=== PATIENT | male | born 1985 | race Caucasian/White ===

== ENCOUNTER 2021-07-31 17:03 | Inpatient (IN) | payer SELFPAY ==
[~2021-07-31] VITALS: Ht 177.8 cm; Wt 84.3 kg
--- NOTE | 2021-07-31 17:26 | PHYS DOC ---
Past Medical History Past Medical History: No Pertinent History Past Surgical History: No Surgical History General Adult EDM: Chief Complaint: SHORTNESS OF BREATH HPI: HPI: Patient is a 35 year old male who presents with who presents with shortness of breath in the setting of known Covid. Tested positive on 07/19 while on vacation in [place]. Has been having nausea, vomiting, muscle aches, fever/chills. States that he has been having constant chest pressure that is making it hard for him to take a deep breath. Review of Systems: Review of Systems: Constitutional: Denies fever or chills. [] Eyes: Denies change in visual acuity. [] HENT: Denies nasal congestion or sore throat. [] Respiratory: Denies cough or shortness of breath. [] Cardiovascular: Denies chest pain or edema. [] GI: Denies abdominal pain, nausea, vomiting, bloody stools or diarrhea. [] : Denies dysuria. [] Musculoskeletal: Denies back pain or joint pain. [] Integument: Denies rash. [] Neurologic: Denies headache, focal weakness or sensory changes. [] Endocrine: Denies polyuria or polydipsia. [] Lymphatic: Denies swollen glands. [] Psychiatric: Denies depression or anxiety. [] Heart Score: C/O Chest Pain: Yes HEART Score for Chest Pain: HEART Score for Chest Pain Response (Comments) Value History Slighlty/Non-Suspicious 0 Age < 45 0 Risk Factors No Risk Factors 0 Total 0 Risk Factors: Risk Factors: None Risk Scores: Score 0 - 3: 2.5% MACE over next 6 weeks - Discharge Home Score 4 - 6: 20.3% MACE over next 6 weeks - Admit for Clinical Observation Score 7 - 10: 72.7% MACE over next 6 weeks - Early Invasive Strategies Physical Exam: PE: Constitutional: Well developed, well nourished, no acute distress, non-toxic appearance. [] HENT: Normocephalic, atraumatic, bilateral external ears normal, oropharynx moist, no oral exudates, nose normal. [] Eyes: PERRLA, EOMI, conjunctiva normal, no discharge. [] Neck: Normal range of motion, no tenderness, supple, no stridor. [] Cardiovascular tachycardic, regular rhythm, no murmur [] Lungs & Thorax: Visibly dyspneic, crackles bilaterally. Hypoxic to 74% on room air. Corrected to 90% with 6 L/min nasal cannula. Abdomen: Bowel sounds normal, soft, no tenderness, no masses, no pulsatile masses. [] Skin: Warm, dry, no erythema, no rash. [] Back: No tenderness, no CVA tenderness. [] Extremities: No tenderness, no cyanosis, no clubbing, ROM intact, no edema. [] Neurologic: Alert and oriented X 3, normal motor function, normal sensory function, no focal deficits noted. [] Psychologic: Affect normal, judgement normal, mood normal. [] Current Patient Data: Vital Signs: Vital Signs Date Time Temp Pulse Resp B/P (MAP) Pulse Ox O2 Delivery O2 Flow Rate FiO2 07/31/21 17:11 100.6 104 136/76 (96) 75 Room Air 100.6 EKG: EKG: Sinus rhythm. Rate 104. Normal axis. Normal intervals. T wave inversion in lead III. No acute ST segment depression or elevation. [] Radiology/Procedures: Radiology/Procedures: [] Impression: [facility] [address] [place] [address] IMAGING REPORT Signed PATIENT: HERI JARAMILLO ACCOUNT: [id number] : 1985 LOCATION: ER AGE: 35 SEX: M EXAM STATUS: PRE ER ORD. PHYSICIAN: RUY PERES MD REASON: covid +, SOB PROCEDURE: CHEST AP ONLY AP chest x-ray HISTORY: Positive Covid infection. Shortness of breath. FINDINGS: Heart size normal. Mediastinal silhouette is normal. No pneumothorax. No pleural effusions. Heterogeneous bilateral pulmonary interstitial and alveolar infiltrates with asymmetric denser opacity at the left lung base. Bones are unremarkable IMPRESSION: Bilateral pulmonary infiltrates given history of positive Covid infection most likely changes of acute viral pneumonia. Electronically signed by: Sridevi Hoffman MD (07/31/2021 5:39 PM) [facility] DICTATED and SIGNED BY: SRIDEVI HOFFMAN MD DATE: 07/31/21 [id number] 0 Course & Med Decision Making: Course & Med Decision Making Pertinent Labs and Imaging studies reviewed. (See chart for details) Patient a 35-year-old male who presents with dyspnea in the setting of Covid. Hypoxic to 74% on room air. Corrected to 90% on 6 L/min nasal cannula Complains of chest pressure that is pleuritic in nature. Tachycardic as well. Chest x-ray consistent with Covid pneumonia. CTA ordered to exclude PE. We will give IV dexamethasone. Hold on antibiotics for now. Will require admission for hypoxia. Accepted for admission by Dr. Webb. Ping Disclaimer: Ping Disclaimer: This electronic medical record was generated, in whole or in part, using a voice recognition dictation system. Departure Departure Impression: Primary Impression: Pneumonia due to COVID-19 virus Additional Impression: Acute respiratory failure with hypoxia Disposition: ADMITTED INPATIENT Admitting Physician: BESSY Ontiveros) Condition: VON RUY PERES MD Jul 31, 2021 17:26
--- NOTE | 2021-07-31 17:28 | EKG ---
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
--- NOTE | 2021-07-31 17:42 | RAD ---
AP chest x-ray HISTORY: Positive Covid infection. Shortness of breath. FINDINGS: Heart size normal. Mediastinal silhouette is normal. No pneumothorax. No pleural effusions. Heterogeneous bilateral pulmonary interstitial and alveolar infiltrates with asymmetric denser opaci ty at the left lung base. Bones are unremarkable IMPRESSION: Bilateral pulmonary infiltrates given history of positive Covid infection most likely tino nges of acute viral pneumonia. Electronically signed by: Ze Hoffman MD (07/31/2021 5:39 PM) [facility]
[2021-07-31 17:52] LABS: BASO % 0 % (0-3); EOS % 0 % (0-3); HEMATOCRIT 39.4 % (39.0-53.0); HEMOGLOBIN 13.6 g/dL (13.0-17.5); LYMPH # 0.4 x10^3/uL (1.0-4.8); LYMPH % 6 % (24-48); MEAN CORPUSCULAR HEMOGLOBIN 31 pg (25-35); MEAN CORPUSCULAR HGB CONC 35 g/dL (31-37); MEAN CORPUSCULAR VOLUME 89 fL (79-100); MONO # 0.2 x10^3/uL (0.0-1.1); MONO % 2 % (0-9); NEUT # 6.9 x10^3/uL (1.8-7.7); NEUT % 92 % (31-73); PLATELET COUNT 271 x10^3/uL (140-400); RED BLOOD COUNT 4.42 x10^6/uL (4.30-5.70); RED CELL DISTRIBUTION WIDTH 13.2 % (11.5-14.5); WHITE BLOOD COUNT 7.5 x10^3/uL (4.0-11.0)
[2021-07-31 18:01] LABS: CALCIUM 7.9 mg/dL (8.5-10.1); GFR 84.1; POTASSIUM 3.8 mmol/L (3.5-5.1)
[2021-07-31 18:07] LABS: ALBUMIN 2.3 g/dL (3.4-5.0); ALBUMIN/GLOBULIN RATIO 0.5 (1.0-1.7); TOTAL BILIRUBIN 0.5 mg/dL (0.2-1.0); TOTAL PROTEIN 6.5 g/dL (6.4-8.2)
[2021-07-31] MEDS ORDERED: IOHEXOL 350 MG/ML 100 ML VIAL. IV ONE (18:45)
[2021-07-31] MEDS ORDERED: CONTRAST GIVEN. MC PRN (18:45)
[2021-07-31] MEDS ORDERED: CALCIUM CARBONATE 500 MG TAB.CHEW PO PRN (19:00)
[2021-07-31] MEDS ORDERED: ELECTROLYTE (NON-ICU) PROTOCOL. MC PRN (19:00)
[2021-07-31] MEDS ORDERED: ALBUTEROL SULFATE 8GM INHALER. INH PRN (19:00)
[2021-07-31] MEDS ORDERED: oxyCODONE IR 5 MG TABLET PO PRN (19:00)
[2021-07-31] MEDS ORDERED: PIP/TAZO PER PHARMACY MC PRN (19:00)
--- NOTE | 2021-07-31 19:28 | RAD ---
EXAM: CT chest with contrast - pulmonary embolus protocol CLINICAL HISTORY: r/o PE, severe hypoxia, covid COMPARISON: None. TECHNIQUE: CT of the chest following the administration of intravenous contrast during the pulmonary arterial phase. Axial, coronal and sagittal reformatted images were generated including MIP images. ---PQRS compliance statement - One or more of the following individualized dose reduction techniques were utilized for this study: 1. Automated exposure control 2. Adjustment of the mA and/or kV according to patient size 3. Use of iterative reconstruction technique--- FINDINGS: CHEST: Diagnostic quality: Suboptimal. Pulmonary emboli: No large central pulmonary emboli seen. The pulmonary artery branches are not adeq uately assessed. Right heart strain: None Pulmonary arteries: Normal in caliber. Diffuse bilateral parenchymal airspace opacities are seen. Heart is not enlarged. No pericardial effu priscilla. No pleural effusion. No pneumothorax. No axillary lymphadenopathy. No mediastinal or hilar lymp hadenopathy. Visualized thyroid is unremarkable. Visualized Upper abdomen: Unremarkable Bones: No aggressive osseous lesion is seen. IMPRESSION: 1. Diffuse bilateral parenchymal airspace opacities likely consolidative process such as pneumonia, such as from viral/covid pneumonia. 2. Suboptimal contrast bolus. Within these constraints, no large central pulmonary embolus. Distal e valuation is limited. Electronically signed by: Joe Quijano MD (07/31/2021 7:26 PM) DON
--- NOTE | 2021-07-31 19:46 | PDOC1 ---
History and Physical Date of Service: DOS: DATE: 07/31/21 TIME: 19:40 Chief Complaint: Problems: (1) Acute respiratory failure with hypoxia (2) Pneumonia due to COVID-19 virus Chief Complain: Shortness of breath History of Present Illness: HPI: Patient is a 35-year-old white male who presented to the emergency room today due to ongoing shortness of breath. Patient denies any sort of past medical history or daily medications. Reports that he was on vacation in [place] and had been having some nausea vomiting fever chills and cough. Was seen in emergency room there twice and was actually diagnosed on 07/19 with Covid. Says that he was not provided any medication outpatient on either of these visits. Says that ever since the diagnosis on the he has had ongoing GI upset nausea vomiting. Also reports that his shortness of breath notably worsened today. CT performed in emergency room negative for PE but more so consistent with a pneumonia. When I evaluated the patient as he was resting in bed on 6 L nasal cannula. Given Covid positive he was started on dexamethasone. He is apparently not a candidate at this time for remdesivir due to diagnosis being too long ago. May be retest Past Medical/Surgical History: PMH/PSH: Patient denies any sort of past medical history Allergies: Allergies: Coded Allergies: No Known Drug Allergies (Unverified , 07/31/21) Family History: Family History: Reviewed with patient he believes there is hypertension in his family Social History: Social History: Denies alcohol tobacco drug use Current Medications: Current Medications Current Medications Iohexol (Omnipaque 350 Mg/ml) 100 ml 1X ONCE IV Last administered on 07/31/21at 19:13; Start 07/31/21 at 18:45; Stop 07/31/21 at 18:46; Status DC Info (CONTRAST GIVEN -- Rx MONITORING) 1 each PRN DAILY PRN MC SEE COMMENTS; Start 07/31/21 at 18:45; Stop 08/02/21 at 18:44 Albuterol Sulfate (Ventolin Hfa) 2 puff PRN Q4HRS PRN INH SHORTNESS OF BREATH; Start 07/31/21 at 19:00 Dexamethasone Sodium Phosphate (Decadron) 6 mg DAILY IVP ; Start 07/31/21 at 19:30 Ondansetron HCl (Zofran) 4 mg PRN Q6HRS PRN IVP NAUSEA/VOMITING; Start 07/31/21 at 19:00 Calcium Carbonate/ Glycine (Tums) 500 mg PRN Q3HRS PRN PO UPSET STOMACH; Start 07/31/21 at 19:00 Zolpidem Tartrate (Ambien) 5 mg PRN QHS PRN PO INSOMNIA, MAY REPEAT IN 1HR; Start 07/31/21 at 19:00 Info (Non-Icu Electrolyte Protocol) 1 ea PRN DAILY PRN MC SEE COMMENTS; Start 07/31/21 at 19:00 Oxycodone HCl (Roxicodone) 5 mg PRN Q3HRS PRN PO BREAKTHROUGH PAIN; Start 07/31/21 at 19:00 Oxycodone/ Acetaminophen (Percocet 5/325) 1 tab PRN Q4HRS PRN PO MILD PAIN, 1ST CHOICE; Start 07/31/21 at 19:00 Oxycodone/ Acetaminophen (Percocet 5/325) 2 tab PRN Q4HRS PRN PO MODERATE PAIN, SEVERE PAIN; Start 07/31/21 at 19:00 Acetaminophen (Tylenol) 650 mg PRN Q6HRS PRN PO Headaches, Temp > 101.5F; Start 07/31/21 at 19:00 Senna/Docusate Sodium (Senna Plus) 1 tab BID PO ; Start 07/31/21 at 21:00 Enoxaparin Sodium (Lovenox 40mg Syringe) 40 mg Q24H SQ ; Start 07/31/21 at 20:00 Guaifenesin/ Codeine Phosphate (Robitussin Ac) 5 ml PRN Q6HRS PRN PO COUGH; Start 07/31/21 at 19:00 Multivitamins (Thera M Plus) 1 tab DAILY PO ; Start 08/01/21 at 09:00 Piperacillin Sod/ Tazobactam Sod (Zosyn Per Pharmacy) 1 each PRN DAILY PRN MC SEE COMMENTS; Start 07/31/21 at 19:00 Piperacillin Sod/ Tazobactam Sod 3.375 gm/Sodium Chloride 50 ml @ 100 mls/hr Q6HRS IV ; Start 07/31/21 at 19:30 ROS: Review of Systems Review of System Unless noted in HPI 14 point review of systems was negative Physical Exam: Vital Signs: Vital Signs Date Time Temp Pulse Resp B/P (MAP) Pulse Ox O2 Delivery O2 Flow Rate FiO2 07/31/21 19:09 112 30 147/72 (97) 92 6.0 07/31/21 18:08 Nasal Cannula 07/31/21 17:11 100.6 100.6 Physcial Exam: GEN: No apparent distress. Alert and oriented HEENT: Normal cephalic, atraumatic, external auditory canals are patent EYES: Extraocular muscles are intact, pupil are equally round and reactive to light and accommodation MUSCULOSKELETAL: Well developed , well nourished, good range of motion ENDOCRINE: No thyromegaly was palpated LYMPHATICS: No cervical chain or axillary nodes were noted HEMATOPOIETIC: No bruising NECK: Supple, no JVD, no thyromegaly was noted LUNGS: Coarse breath sounds throughout. On 6 L nasal cannula no apparent respiratory distress HEART: RRR, S1, S2 present. Peripheral pulses intact, no obvious murmurs noted ABDOMEN: Soft, nontender. Positive bowel sounds, no organomegaly, normal bowel sounds EXTREMITIES: Without clubbing, cyanosis, or edema. Pedal pulses intact. NEUROLOGIC: Normal speech and tone. A&O x 3, moves all extremities, no obvious focal deficits PSYCHIATRIC: Normal affect, normal mood. Stable SKIN: No ulcerations or rashes, good skin turgor, no jaundice VASCULAR: Good capillary refill, neurovascular bundle appears to be intact Labs: Labs: Laboratory Tests Test 07/31/21 17:45 White Blood Count 7.5 x10^3/uL (4.0-11.0) Red Blood Count 4.42 x10^6/uL (4.30-5.70) Hemoglobin 13.6 g/dL (13.0-17.5) Hematocrit 39.4 % (39.0-53.0) Mean Corpuscular Volume 89 fL (79-100) Mean Corpuscular Hemoglobin 31 pg (25-35) Mean Corpuscular Hemoglobin Concent 35 g/dL (31-37) Red Cell Distribution Width 13.2 % (11.5-14.5) Platelet Count 271 x10^3/uL (140-400) Neutrophils (%) (Auto) 92 % (31-73) Lymphocytes (%) (Auto) 6 % (24-48) Monocytes (%) (Auto) 2 % (0-9) Eosinophils (%) (Auto) 0 % (0-3) Basophils (%) (Auto) 0 % (0-3) Neutrophils # (Auto) 6.9 x10^3/uL (1.8-7.7) Lymphocytes # (Auto) 0.4 x10^3/uL (1.0-4.8) Monocytes # (Auto) 0.2 x10^3/uL (0.0-1.1) Eosinophils # (Auto) 0.0 x10^3/uL (0.0-0.7) Basophils # (Auto) 0.0 x10^3/uL (0.0-0.2) Sodium Level 134 mmol/L (136-145) Potassium Level 3.8 mmol/L (3.5-5.1) Chloride Level 96 mmol/L (98-107) Carbon Dioxide Level 26 mmol/L (21-32) Anion Gap 12 (6-14) Blood Urea Nitrogen 13 mg/dL (8-26) Creatinine 1.0 mg/dL (0.7-1.3) Estimated GFR (Cockcroft-Gault) 84.1 BUN/Creatinine Ratio 13 (6-20) Glucose Level 105 mg/dL (70-99) Calcium Level 7.9 mg/dL (8.5-10.1) Total Bilirubin 0.5 mg/dL (0.2-1.0) Aspartate Amino Transf (AST/SGOT) 75 U/L (15-37) Alanine Aminotransferase (ALT/SGPT) 119 U/L (16-63) Alkaline Phosphatase 111 U/L (46-116) Troponin I Quantitative < 0.017 ng/mL (0.000-0.055) OM-Ojl-L-Type Natriuretic Peptide 638 pg/mL (0-124) Total Protein 6.5 g/dL (6.4-8.2) Albumin 2.3 g/dL (3.4-5.0) Albumin/Globulin Ratio 0.5 (1.0-1.7) Laboratory Tests Test 07/31/21 17:45 White Blood Count 7.5 x10^3/uL (4.0-11.0) Red Blood Count 4.42 x10^6/uL (4.30-5.70) Hemoglobin 13.6 g/dL (13.0-17.5) Hematocrit 39.4 % (39.0-53.0) Mean Corpuscular Volume 89 fL (79-100) Mean Corpuscular Hemoglobin 31 pg (25-35) Mean Corpuscular Hemoglobin Concent 35 g/dL (31-37) Red Cell Distribution Width 13.2 % (11.5-14.5) Platelet Count 271 x10^3/uL (140-400) Neutrophils (%) (Auto) 92 % (31-73) Lymphocytes (%) (Auto) 6 % (24-48) Monocytes (%) (Auto) 2 % (0-9) Eosinophils (%) (Auto) 0 % (0-3) Basophils (%) (Auto) 0 % (0-3) Neutrophils # (Auto) 6.9 x10^3/uL (1.8-7.7) Lymphocytes # (Auto) 0.4 x10^3/uL (1.0-4.8) Monocytes # (Auto) 0.2 x10^3/uL (0.0-1.1) Eosinophils # (Auto) 0.0 x10^3/uL (0.0-0.7) Basophils # (Auto) 0.0 x10^3/uL (0.0-0.2) Sodium Level 134 mmol/L (136-145) Potassium Level 3.8 mmol/L (3.5-5.1) Chloride Level 96 mmol/L (98-107) Carbon Dioxide Level 26 mmol/L (21-32) Anion Gap 12 (6-14) Blood Urea Nitrogen 13 mg/dL (8-26) Creatinine 1.0 mg/dL (0.7-1.3) Estimated GFR (Cockcroft-Gault) 84.1 BUN/Creatinine Ratio 13 (6-20) Glucose Level 105 mg/dL (70-99) Calcium Level 7.9 mg/dL (8.5-10.1) Total Bilirubin 0.5 mg/dL (0.2-1.0) Aspartate Amino Transf (AST/SGOT) 75 U/L (15-37) Alanine Aminotransferase (ALT/SGPT) 119 U/L (16-63) Alkaline Phosphatase 111 U/L (46-116) Troponin I Quantitative < 0.017 ng/mL (0.000-0.055) DQ-Dgt-T-Type Natriuretic Peptide 638 pg/mL (0-124) Total Protein 6.5 g/dL (6.4-8.2) Albumin 2.3 g/dL (3.4-5.0) Albumin/Globulin Ratio 0.5 (1.0-1.7) Assessment/Plan Assessment/Plan Acute hypoxic respiratory failure secondary to COVID-19 pneumonia -Patient initially diagnosed with Covid on 07/19. Reports ongoing symptom -Presented here saturating in the 70s on room air. Corrected up to the 90s with 6 L nasal cannula -Admit for further treatment -Patient not a candidate for remdesivir at this time however will retest him here. -Continue dexamethasone 6 mg daily -Patient started on Zosyn in the event of a possible bacterial pneumonia -Breathing treatments ordered -DVT prophylaxis -No home meds to resume -Regular diet Justifications for Admission Other Justification YOSI RAHMAN MD Jul 31, 2021 19:46
[2021-07-31] MEDS: DEXAMETHASONE SOD PHOS 4 MG/ML VIAL IVP SCH (19:55)
[2021-07-31] MEDS: PIPERACILLIN/TAZOBACTAM 3.375 GM in IV NORMAL SALINE 50ML 50 ML IV SCH (19:55)
[2021-07-31] MEDS ORDERED: IPRATRPIUM/ALBUTEROL 0.5/2.5MG 3 ML NEBU. NEB SCH (20:00)
[2021-07-31] MEDS: oxyCODONE/APAP 5/325 1 TAB TABLET PO PRN (20:31)
[2021-07-31] MEDS: ZOLPIDEM 5 MG TABLET. PO PRN (20:32)
[2021-07-31] MEDS: ENOXAPARIN 40 MG/0.4 ML SYRINGE. SQ SCH (20:32)
[2021-07-31] MEDS: SENNOSIDES/DOCUSATE 8.6/50MG TABLET. PO SCH (21:00)
[2021-07-31 23:30] VITALS: BP 118/75
[2021-08-01 03:30] VITALS: BP 134/77
[2021-08-01] MEDS: PIPERACILLIN/TAZOBACTAM 3.375 GM in IV NORMAL SALINE 50ML 50 ML IV SCH ×4 (05:45→17:25)
[2021-08-01] MEDS: guaiFENesin/CODEINE 100mg/10mg 5 ML LIQUID PO PRN ×3 (05:45→19:50)
[2021-08-01 07:00] VITALS: BP 145/93
[2021-08-01] MEDS: SENNOSIDES/DOCUSATE 8.6/50MG TABLET. PO SCH ×2 (09:00→19:53)
[2021-08-01] MEDS: DEXAMETHASONE SOD PHOS 4 MG/ML VIAL IVP SCH (09:09)
[2021-08-01] MEDS: ACETAMINOPHEN 325 MG TABLET. PO PRN (09:09)
[2021-08-01] MEDS: MULTIVITAMIN with MINERAL TABLET. PO SCH (09:09)
[2021-08-01] MEDS: DOXYCYCLINE HYCLATE 100 MG in IV DEXTROSE 5% 100ML 100 ML IV SCH ×2 (10:49→19:49)
[2021-08-01] MEDS: ASPIRIN ENTERIC COATED 81 MG TABLET.DR. PO SCH (10:52)
[2021-08-01 11:00] VITALS: BP 127/78
[2021-08-01] MEDS ORDERED: REMDESIVIR LOAD in IV NORMAL SALINE 250ML TV IV ONE (11:00)
--- NOTE | 2021-08-01 13:16 | PDOC ---
[employer] PROGRESS NOTE Date of Service DOS: DATE: 08/01/21 TIME: 13:13 Chief Complaint Chief Complaint Covid-19 respiratory failure disease (he is unvaccinated) History of Present Illness History of Present Illness 08/01/2021 Patient seen and examined in the telemetry unit He is currently on 100% nonrebreather but satting 97% Discussed with RN Chart reviewed I ordered full Covid protocol including calling the pharmacy for remdesivir Vitals/I&O Vitals/I&O: Vital Signs Date Time Temp Pulse Resp B/P (MAP) Pulse Ox O2 Delivery O2 Flow Rate FiO2 08/01/21 11:00 98.1 86 22 127/78 (94) 91 NonRebreather Mask 15.0 98.1 I & O 07/31/21 07/31/21 08/01/21 15:00 23:00 07:00 Output Total 0 ml 500 ml Balance 0 ml -500 ml Physical Exam General: Alert, Oriented X3, moderate distress Heart: No murmurs Lungs: Crackles Abdomen: Normal bowel sounds Extremities: No cyanosis Skin: No rashes Labs Labs: Laboratory Tests Test 07/31/21 17:45 White Blood Count 7.5 x10^3/uL (4.0-11.0) Red Blood Count 4.42 x10^6/uL (4.30-5.70) Hemoglobin 13.6 g/dL (13.0-17.5) Hematocrit 39.4 % (39.0-53.0) Mean Corpuscular Volume 89 fL (79-100) Mean Corpuscular Hemoglobin 31 pg (25-35) Mean Corpuscular Hemoglobin Concent 35 g/dL (31-37) Red Cell Distribution Width 13.2 % (11.5-14.5) Platelet Count 271 x10^3/uL (140-400) Neutrophils (%) (Auto) 92 % (31-73) Lymphocytes (%) (Auto) 6 % (24-48) Monocytes (%) (Auto) 2 % (0-9) Eosinophils (%) (Auto) 0 % (0-3) Basophils (%) (Auto) 0 % (0-3) Neutrophils # (Auto) 6.9 x10^3/uL (1.8-7.7) Lymphocytes # (Auto) 0.4 x10^3/uL (1.0-4.8) Monocytes # (Auto) 0.2 x10^3/uL (0.0-1.1) Eosinophils # (Auto) 0.0 x10^3/uL (0.0-0.7) Basophils # (Auto) 0.0 x10^3/uL (0.0-0.2) Sodium Level 134 mmol/L (136-145) Potassium Level 3.8 mmol/L (3.5-5.1) Chloride Level 96 mmol/L (98-107) Carbon Dioxide Level 26 mmol/L (21-32) Anion Gap 12 (6-14) Blood Urea Nitrogen 13 mg/dL (8-26) Creatinine 1.0 mg/dL (0.7-1.3) Estimated GFR (Cockcroft-Gault) 84.1 BUN/Creatinine Ratio 13 (6-20) Glucose Level 105 mg/dL (70-99) Calcium Level 7.9 mg/dL (8.5-10.1) Total Bilirubin 0.5 mg/dL (0.2-1.0) Aspartate Amino Transf (AST/SGOT) 75 U/L (15-37) Alanine Aminotransferase (ALT/SGPT) 119 U/L (16-63) Alkaline Phosphatase 111 U/L (46-116) Troponin I Quantitative < 0.017 ng/mL (0.000-0.055) XE-Nxk-R-Type Natriuretic Peptide 638 pg/mL (0-124) Total Protein 6.5 g/dL (6.4-8.2) Albumin 2.3 g/dL (3.4-5.0) Albumin/Globulin Ratio 0.5 (1.0-1.7) Assessment and Plan Assessmemt and Plan Problems Medical Problems: (1) Acute respiratory failure with hypoxia Status: Acute (2) Pneumonia due to COVID-19 virus Status: Acute Covid-19 respiratory failure (he is unvaccinated) Plan Remdesivir Steroids Vitamins and minerals Broad-spectrum antibiotics Doxycycline Beta agonist Continue O2 per 100% nonrebreather hope to titrate that down if possible Robitussin with codeine cough syrup Lovenox for DVT prophylaxis Aspirin Prognosis guarded CC time 31 minutes Comment Review of Relevant I have reviewed the following items iam (where applicable) has been applied. Medications: Current Medications Medications (Trade) Dose Ordered Sig/Willy Route PRN Reason Start Time Stop Time Status Last Admin Dose Admin Iohexol (Omnipaque 350 Mg/ml) 100 ml 1X ONCE IV 07/31/21 18:45 07/31/21 18:46 DC 07/31/21 19:13 Dexamethasone Sodium Phosphate (Decadron) 6 mg DAILY IVP 07/31/21 19:30 08/01/21 09:09 Zolpidem Tartrate (Ambien) 5 mg PRN QHS PRN PO INSOMNIA, MAY REPEAT IN 1HR 07/31/21 19:00 07/31/21 20:32 Oxycodone/ Acetaminophen (Percocet 5/325) 1 tab PRN Q4HRS PRN PO MILD PAIN, 1ST CHOICE 07/31/21 19:00 07/31/21 20:31 Acetaminophen (Tylenol) 650 mg PRN Q6HRS PRN PO Headaches, Temp > 101.5F 07/31/21 19:00 08/01/21 09:09 Enoxaparin Sodium (Lovenox 40mg Syringe) 40 mg Q24H SQ 07/31/21 20:00 07/31/21 20:32 Guaifenesin/ Codeine Phosphate (Robitussin Ac) 5 ml PRN Q6HRS PRN PO COUGH 07/31/21 19:00 08/01/21 09:09 Multivitamins (Thera M Plus) 1 tab DAILY PO 08/01/21 09:00 08/01/21 09:09 Piperacillin Sod/ Tazobactam Sod 3.375 gm/Sodium Chloride 50 ml @ 100 mls/hr Q6HRS IV 07/31/21 19:30 08/01/21 12:04 Remdesivir 200 mg/ Sodium Chloride 210 ml @ 210 mls/hr 1X ONCE IV 08/01/21 11:00 08/01/21 11:59 DC 08/01/21 10:51 Guaifenesin (Mucinex) 600 mg BID PO 08/01/21 11:00 08/01/21 10:52 Doxycycline Hyclate 100 mg/ Dextrose 100 ml @ 50 mls/hr Q12HR IV 08/01/21 11:00 08/01/21 10:49 Aspirin (Ecotrin) 81 mg DAILYWBKFT PO 08/01/21 11:00 08/01/21 10:52 Justifications for Admission Other Justification DON CHAUHAN III DO Aug 01, 2021 13:16
[2021-08-01 15:00] VITALS: BP 127/70
--- NOTE | 2021-08-01 17:30 | PDOC ---
PULMONARY PROGRESS NOTES DATE: 08/01/21 TIME: 17:29 Vitals Vital Signs Date Time Temp Pulse Resp B/P (MAP) Pulse Ox O2 Delivery O2 Flow Rate FiO2 08/01/21 15:00 97.4 77 30 127/70 (89) 94 NonRebreather Mask 15.0 97.4 Lungs: Crackles Labs Laboratory Tests Test 07/31/21 17:45 White Blood Count 7.5 x10^3/uL (4.0-11.0) Red Blood Count 4.42 x10^6/uL (4.30-5.70) Hemoglobin 13.6 g/dL (13.0-17.5) Hematocrit 39.4 % (39.0-53.0) Mean Corpuscular Volume 89 fL (79-100) Mean Corpuscular Hemoglobin 31 pg (25-35) Mean Corpuscular Hemoglobin Concent 35 g/dL (31-37) Red Cell Distribution Width 13.2 % (11.5-14.5) Platelet Count 271 x10^3/uL (140-400) Neutrophils (%) (Auto) 92 % (31-73) Lymphocytes (%) (Auto) 6 % (24-48) Monocytes (%) (Auto) 2 % (0-9) Eosinophils (%) (Auto) 0 % (0-3) Basophils (%) (Auto) 0 % (0-3) Neutrophils # (Auto) 6.9 x10^3/uL (1.8-7.7) Lymphocytes # (Auto) 0.4 x10^3/uL (1.0-4.8) Monocytes # (Auto) 0.2 x10^3/uL (0.0-1.1) Eosinophils # (Auto) 0.0 x10^3/uL (0.0-0.7) Basophils # (Auto) 0.0 x10^3/uL (0.0-0.2) Sodium Level 134 mmol/L (136-145) Potassium Level 3.8 mmol/L (3.5-5.1) Chloride Level 96 mmol/L (98-107) Carbon Dioxide Level 26 mmol/L (21-32) Anion Gap 12 (6-14) Blood Urea Nitrogen 13 mg/dL (8-26) Creatinine 1.0 mg/dL (0.7-1.3) Estimated GFR (Cockcroft-Gault) 84.1 BUN/Creatinine Ratio 13 (6-20) Glucose Level 105 mg/dL (70-99) Calcium Level 7.9 mg/dL (8.5-10.1) Total Bilirubin 0.5 mg/dL (0.2-1.0) Aspartate Amino Transf (AST/SGOT) 75 U/L (15-37) Alanine Aminotransferase (ALT/SGPT) 119 U/L (16-63) Alkaline Phosphatase 111 U/L (46-116) Troponin I Quantitative < 0.017 ng/mL (0.000-0.055) NY-Dsf-X-Type Natriuretic Peptide 638 pg/mL (0-124) Total Protein 6.5 g/dL (6.4-8.2) Albumin 2.3 g/dL (3.4-5.0) Albumin/Globulin Ratio 0.5 (1.0-1.7) Laboratory Tests Test 07/31/21 17:45 White Blood Count 7.5 x10^3/uL (4.0-11.0) Red Blood Count 4.42 x10^6/uL (4.30-5.70) Hemoglobin 13.6 g/dL (13.0-17.5) Hematocrit 39.4 % (39.0-53.0) Mean Corpuscular Volume 89 fL (79-100) Mean Corpuscular Hemoglobin 31 pg (25-35) Mean Corpuscular Hemoglobin Concent 35 g/dL (31-37) Red Cell Distribution Width 13.2 % (11.5-14.5) Platelet Count 271 x10^3/uL (140-400) Neutrophils (%) (Auto) 92 % (31-73) Lymphocytes (%) (Auto) 6 % (24-48) Monocytes (%) (Auto) 2 % (0-9) Eosinophils (%) (Auto) 0 % (0-3) Basophils (%) (Auto) 0 % (0-3) Neutrophils # (Auto) 6.9 x10^3/uL (1.8-7.7) Lymphocytes # (Auto) 0.4 x10^3/uL (1.0-4.8) Monocytes # (Auto) 0.2 x10^3/uL (0.0-1.1) Eosinophils # (Auto) 0.0 x10^3/uL (0.0-0.7) Basophils # (Auto) 0.0 x10^3/uL (0.0-0.2) Sodium Level 134 mmol/L (136-145) Potassium Level 3.8 mmol/L (3.5-5.1) Chloride Level 96 mmol/L (98-107) Carbon Dioxide Level 26 mmol/L (21-32) Anion Gap 12 (6-14) Blood Urea Nitrogen 13 mg/dL (8-26) Creatinine 1.0 mg/dL (0.7-1.3) Estimated GFR (Cockcroft-Gault) 84.1 BUN/Creatinine Ratio 13 (6-20) Glucose Level 105 mg/dL (70-99) Calcium Level 7.9 mg/dL (8.5-10.1) Total Bilirubin 0.5 mg/dL (0.2-1.0) Aspartate Amino Transf (AST/SGOT) 75 U/L (15-37) Alanine Aminotransferase (ALT/SGPT) 119 U/L (16-63) Alkaline Phosphatase 111 U/L (46-116) Troponin I Quantitative < 0.017 ng/mL (0.000-0.055) II-Ycn-U-Type Natriuretic Peptide 638 pg/mL (0-124) Total Protein 6.5 g/dL (6.4-8.2) Albumin 2.3 g/dL (3.4-5.0) Albumin/Globulin Ratio 0.5 (1.0-1.7) Impression . COVID-19 Continue remdesivir, continue steroid Discontinue Zosyn, doubt concomitant bacterial pneumonia We are currently out of tocilizumab, not sure patient would have been a candidate. His LFTs are elevated We will monitor daily LFTs patient on remdesivir Discussed with pharmacy JORDEN PERDUE MD Aug 01, 2021 17:30
[2021-08-01] MEDS ORDERED: diphenhydrAMINE HCL 25 MG CAPSULE PO PRN (18:45)
[2021-08-01 19:00] VITALS: BP 140/81
[2021-08-01] MEDS: cefTRIAXone IV Push 1 GM VIAL. IVP SCH (19:49)
[2021-08-01] MEDS: ENOXAPARIN 40 MG/0.4 ML SYRINGE. SQ SCH (19:49)
[2021-08-01] MEDS: ZOLPIDEM 5 MG TABLET. PO PRN (19:51)
[2021-08-01] MEDS: LACTOBACILLUS RHAMNOSUS GG 1 CAPSULE. PO SCH (19:51)
[2021-08-01] MEDS: oxyCODONE/APAP 5/325 1 TAB TABLET PO PRN (19:51)
[2021-08-01 22:38] VITALS: BP 146/85
[2021-08-02 02:51] VITALS: BP 133/92
[2021-08-02 07:36] VITALS: BP 123/88
[2021-08-02] MEDS: MULTIVITAMIN with MINERAL TABLET. PO SCH (08:04)
[2021-08-02] MEDS: ASPIRIN ENTERIC COATED 81 MG TABLET.DR. PO SCH (08:04)
[2021-08-02] MEDS: DEXAMETHASONE SOD PHOS 4 MG/ML VIAL IVP SCH (08:04)
[2021-08-02] MEDS: SENNOSIDES/DOCUSATE 8.6/50MG TABLET. PO SCH ×2 (08:04→20:17)
[2021-08-02] MEDS: LACTOBACILLUS RHAMNOSUS GG 1 CAPSULE. PO SCH ×2 (08:04→20:17)
[2021-08-02] MEDS: DOXYCYCLINE HYCLATE 100 MG in IV DEXTROSE 5% 100ML 100 ML IV SCH ×2 (08:05→20:16)
--- NOTE | 2021-08-02 09:06 | PDOC ---
PULMONARY PROGRESS NOTES DATE: 08/02/21 TIME: 09:06 Subjective Patient feels worse this morning has some nausea, coughing up some mucus mixed in with blood Vitals Vital Signs Date Time Temp Pulse Resp B/P (MAP) Pulse Ox O2 Delivery O2 Flow Rate FiO2 08/02/21 07:36 97.8 76 16 123/88 (100) 99 NonRebreather Mask 15.0 97.8 ROS: No Chest Pain, No Increase Cough General: Alert Lungs: Crackles Cardiovascular: S1, S2 Abdomen: Soft Neuro Exam: Alert Extremities: No Edema Skin: Warm Labs Laboratory Tests Test 07/31/21 17:45 White Blood Count 7.5 x10^3/uL (4.0-11.0) Red Blood Count 4.42 x10^6/uL (4.30-5.70) Hemoglobin 13.6 g/dL (13.0-17.5) Hematocrit 39.4 % (39.0-53.0) Mean Corpuscular Volume 89 fL (79-100) Mean Corpuscular Hemoglobin 31 pg (25-35) Mean Corpuscular Hemoglobin Concent 35 g/dL (31-37) Red Cell Distribution Width 13.2 % (11.5-14.5) Platelet Count 271 x10^3/uL (140-400) Neutrophils (%) (Auto) 92 % (31-73) Lymphocytes (%) (Auto) 6 % (24-48) Monocytes (%) (Auto) 2 % (0-9) Eosinophils (%) (Auto) 0 % (0-3) Basophils (%) (Auto) 0 % (0-3) Neutrophils # (Auto) 6.9 x10^3/uL (1.8-7.7) Lymphocytes # (Auto) 0.4 x10^3/uL (1.0-4.8) Monocytes # (Auto) 0.2 x10^3/uL (0.0-1.1) Eosinophils # (Auto) 0.0 x10^3/uL (0.0-0.7) Basophils # (Auto) 0.0 x10^3/uL (0.0-0.2) Sodium Level 134 mmol/L (136-145) Potassium Level 3.8 mmol/L (3.5-5.1) Chloride Level 96 mmol/L (98-107) Carbon Dioxide Level 26 mmol/L (21-32) Anion Gap 12 (6-14) Blood Urea Nitrogen 13 mg/dL (8-26) Creatinine 1.0 mg/dL (0.7-1.3) Estimated GFR (Cockcroft-Gault) 84.1 BUN/Creatinine Ratio 13 (6-20) Glucose Level 105 mg/dL (70-99) Calcium Level 7.9 mg/dL (8.5-10.1) Total Bilirubin 0.5 mg/dL (0.2-1.0) Aspartate Amino Transf (AST/SGOT) 75 U/L (15-37) Alanine Aminotransferase (ALT/SGPT) 119 U/L (16-63) Alkaline Phosphatase 111 U/L (46-116) Troponin I Quantitative < 0.017 ng/mL (0.000-0.055) KR-Uzl-S-Type Natriuretic Peptide 638 pg/mL (0-124) Total Protein 6.5 g/dL (6.4-8.2) Albumin 2.3 g/dL (3.4-5.0) Albumin/Globulin Ratio 0.5 (1.0-1.7) Impression . IMPRESSION: 1. Acute hypoxemic respiratory failure. 2. COVID-19 viral pneumonia. 3. Acute respiratory distress syndrome. 4. Possible bacterial pneumonia. 5. Elevated liver function tests related to COVID. Plan . Updated 08/02 Start IV fluids Continue current support Oxygen supplementation Remdesivir and steroids PLAN: 1. Continue remdesivir and steroids. 2. Discontinue Zosyn, initiate Rocephin. 3. Continue doxycycline. 4. Monitor LFTs while on the remdesivir. 5. Above discussed with SUNDAR. JORDEN PERDUE MD Aug 02, 2021 09:06
--- NOTE | 2021-08-02 09:43 | CONS ---
DATE OF CONSULTATION: 08/02/2021 ATTENDING PHYSICIAN: Duncan Webb MD. REASON FOR CONSULTATION: The patient is seen in pulmonary consultation at the request of Dr. Webb for COVID-19, hypoxemia, respiratory failure. HISTORY OF PRESENT ILLNESS: The patient is a 35-year-old unvaccinated individual tested positive on the 07/19 while on vacation in [place], presented with increasing shortness of breath and was found to be hypoxic. He is currently on a nonrebreather. I was asked to see him in consultation. He denies any prior pulmonary history. He is a nonsmoker. He is coughing up some mucus mixed in with blood. Chest x-ray was reviewed. There is bilateral pulmonary infiltrates compatible with COVID-19 pneumonia. He also had a CT angiogram of the chest, which revealed no significant central emboli. It was a suboptimal exam. It did show diffuse bilateral parenchymal airspace opacities, some consolidation was noted. PAST MEDICAL AND PAST SURGICAL HISTORY: None. ALLERGIES: No known drug allergies. REVIEW OF SYSTEMS: As indicated above, otherwise a 10-point system was reviewed and negative. PHYSICAL EXAMINATION: VITAL SIGNS: Stable. O2 saturation was greater than 92%. He had a fever of 100.6. LUNGS: Scattered rhonchi. CARDIOVASCULAR: Regular rate and rhythm with S1, S2, no S3. ABDOMEN: Soft. EXTREMITIES: No clubbing, cyanosis or edema. LABORATORY DATA: CT and chest x-ray reviewed. White count was normal. Electrolytes were noted. AST and ALT were elevated. IMPRESSION: 1. Acute hypoxemic respiratory failure. 2. COVID-19 viral pneumonia. 3. Acute respiratory distress syndrome. 4. Possible bacterial pneumonia. 5. Elevated liver function tests related to COVID. PLAN: 1. Continue remdesivir and steroids. 2. Discontinue Zosyn, initiate Rocephin. 3. Continue doxycycline. 4. Monitor LFTs while on the remdesivir. 5. Above discussed with RN. NANO/JORY DR: NANO/ag TID: [id number]
[2021-08-02] MEDS: REMDESIVIR 100mg in NORMAL SALINE 250ML X 4 DAYS IV SCH (10:15)
[2021-08-02 10:23] LABS: ALBUMIN 2.1 g/dL (3.4-5.0); ALBUMIN/GLOBULIN RATIO 0.5 (1.0-1.7); CALCIUM 8.2 mg/dL (8.5-10.1); CREATININE 0.9 mg/dL (0.7-1.3); POTASSIUM 4.2 mmol/L (3.5-5.1); TOTAL BILIRUBIN 0.5 mg/dL (0.2-1.0); TOTAL PROTEIN 6.3 g/dL (6.4-8.2)
[2021-08-02] MEDS: IV RINGERS,LACTATED 1000ML 1,000 ML IV SCH ×2 (11:01→20:17)
[2021-08-02 11:45] VITALS: BP 125/88
--- NOTE | 2021-08-02 12:57 | PDOC ---
[facility] PROGRESS NOTE Date of Service DOS: DATE: 08/02/21 TIME: 12:51 Chief Complaint Chief Complaint Acute respiratory failure with hypoxia due to COVID-19 virus (unvaccinated) Pneumonia due to COVID-19 virus History of Present Illness History of Present Illness 08/02 Patient seen and examined bedside. Still on 100% nonrebreather O2 sat 91% Patient reported feeling worse and more weak than yesterday and reports nausea and vomiting Chart reviewed Discussed case with RN 08/01/2021 Patient seen and examined in the telemetry unit He is currently on 100% nonrebreather but satting 97% Discussed with RN Chart reviewed I ordered full Covid protocol including calling the pharmacy for remdesivir Vitals/I&O Vitals/I&O: Vital Signs Date Time Temp Pulse Resp B/P (MAP) Pulse Ox O2 Delivery O2 Flow Rate FiO2 08/02/21 11:45 97.8 76 125/88 (100) 99 Nasal Cannula 15.0 97.8 08/02/21 07:36 16 I & O 08/01/21 08/01/21 08/02/21 15:00 23:00 07:00 Intake Total 478 ml 360 ml 0 ml Balance 478 ml 360 ml 0 ml Physical Exam General: Alert, Oriented X3, moderate distress Heart: No murmurs Lungs: Crackles Abdomen: Normal bowel sounds Extremities: No cyanosis Skin: No rashes Labs Labs: Laboratory Tests Test 08/02/21 09:50 Sodium Level 140 mmol/L (136-145) Potassium Level 4.2 mmol/L (3.5-5.1) Chloride Level 103 mmol/L (98-107) Carbon Dioxide Level 33 mmol/L (21-32) Anion Gap 4 (6-14) Blood Urea Nitrogen 20 mg/dL (8-26) Creatinine 0.9 mg/dL (0.7-1.3) Estimated GFR (Cockcroft-Gault) 95.0 BUN/Creatinine Ratio 22 (6-20) Glucose Level 141 mg/dL (70-99) Calcium Level 8.2 mg/dL (8.5-10.1) Total Bilirubin 0.5 mg/dL (0.2-1.0) Aspartate Amino Transf (AST/SGOT) 66 U/L (15-37) Alanine Aminotransferase (ALT/SGPT) 137 U/L (16-63) Alkaline Phosphatase 122 U/L (46-116) Total Protein 6.3 g/dL (6.4-8.2) Albumin 2.1 g/dL (3.4-5.0) Albumin/Globulin Ratio 0.5 (1.0-1.7) Review of Systems Review of Systems: ROS negative unless noted in HPI. Assessment and Plan Assessmemt and Plan Assessment: Acute respiratory failure with hypoxia due to COVID-19 virus (unvaccinated) Pneumonia due to COVID-19 virus Plan Remdesivir Steroids Vitamins and minerals Broad-spectrum antibiotics Doxycycline Beta agonist Continue O2 per 100% nonrebreather hope to titrate that down if possible Robitussin with codeine cough syrup Lovenox for DVT prophylaxis Aspirin Trend labs Encourage p.o. intake Prognosis guarded Appreciate pulmonary input Comment Review of Relevant I have reviewed the following items iam (where applicable) has been applied. Medications: Current Medications Medications (Trade) Dose Ordered Sig/Willy Route PRN Reason Start Time Stop Time Status Last Admin Dose Admin Remdesivir 100 mg/ Sodium Chloride 230 ml @ 460 mls/hr Q24H IV 08/02/21 10:00 08/05/21 10:29 08/02/21 10:15 Lactobacillus Rhamnosus (Culturelle) 1 cap BID PO 08/01/21 21:00 08/02/21 08:04 Ceftriaxone Sodium (Rocephin) 1 gm Q24H IVP 08/01/21 20:00 08/01/21 19:49 Ringer's Solution 1,000 ml @ 100 mls/hr Q10H IV 08/02/21 10:45 08/02/21 11:01 Justifications for Admission Other Justification DON CHAUHAN III DO Aug 02, 2021 12:57
[2021-08-02 15:00] VITALS: BP 128/80
[2021-08-02 19:30] VITALS: BP 149/80
[2021-08-02] MEDS: ZOLPIDEM 5 MG TABLET. PO PRN (20:16)
[2021-08-02] MEDS: cefTRIAXone IV Push 1 GM VIAL. IVP SCH (20:16)
[2021-08-02] MEDS: ENOXAPARIN 40 MG/0.4 ML SYRINGE. SQ SCH (20:17)
[2021-08-02] MEDS: ONDANSETRON PF 4 MG/2 ML VIAL. IVP PRN (20:35)
[2021-08-02] MEDS: guaiFENesin/CODEINE 100mg/10mg 5 ML LIQUID PO PRN (20:35)
[2021-08-02] MEDS: oxyCODONE/APAP 5/325 1 TAB TABLET PO PRN (20:36)
[2021-08-02 22:45] VITALS: BP 140/92
[2021-08-03 02:45] VITALS: BP 127/67
--- NOTE | 2021-08-03 03:15 | NUR ---
NURSING NOTE Pts oxygen saturation would not go above 86% on 15L NRB. Pt not happy about having mask and NC. Explained to pt that when oxygen needs increase beyond a NRB, adding NC is the next step. Pt placed on 15L NRB + 5L/NC, but oxygen sat would not go above 89%. Pt increased to 15L/NRB + 10L/NC. Pts sat up to 93-95%. Will continue to monitor.
[2021-08-03 05:28] LABS: BASO % 0 % (0-3); EOS % 0 % (0-3); HEMATOCRIT 39.5 % (39.0-53.0); HEMOGLOBIN 13.2 g/dL (13.0-17.5); LYMPH # 0.6 x10^3/uL (1.0-4.8); LYMPH % 6 % (24-48); MEAN CORPUSCULAR HEMOGLOBIN 31 pg (25-35); MEAN CORPUSCULAR HGB CONC 33 g/dL (31-37); MEAN CORPUSCULAR VOLUME 91 fL (79-100); MONO # 0.4 x10^3/uL (0.0-1.1); MONO % 4 % (0-9); NEUT # 8.9 x10^3/uL (1.8-7.7); NEUT % 89 % (31-73); PLATELET COUNT 392 x10^3/uL (140-400); RED BLOOD COUNT 4.33 x10^6/uL (4.30-5.70); RED CELL DISTRIBUTION WIDTH 13.3 % (11.5-14.5)
[2021-08-03 05:56] LABS: ALBUMIN/GLOBULIN RATIO 0.5 (1.0-1.7); CALCIUM 8.2 mg/dL (8.5-10.1); CREATININE 0.9 mg/dL (0.7-1.3); POTASSIUM 4.4 mmol/L (3.5-5.1); TOTAL BILIRUBIN 0.5 mg/dL (0.2-1.0); TOTAL PROTEIN 6.3 g/dL (6.4-8.2)
[2021-08-03 07:55] VITALS: BP 141/88
--- NOTE | 2021-08-03 08:41 | PDOC ---
PULMONARY PROGRESS NOTES DATE: 08/03/21 TIME: 08:41 Subjective Patient's oxygen requirements have increased Cough and mucus production have decreased Vitals Vital Signs Date Time Temp Pulse Resp B/P (MAP) Pulse Ox O2 Delivery O2 Flow Rate FiO2 08/03/21 03:15 22 94 NonRebreather Mask 08/03/21 02:45 96.8 51 127/67 (87) 15.0 96.8 ROS: No Chest Pain, No Increase Cough General: Alert Lungs: Crackles Cardiovascular: S1, S2 Abdomen: Soft Neuro Exam: Alert Extremities: No Edema Skin: Warm Labs Laboratory Tests Test 08/02/21 09:50 08/03/21 04:40 Sodium Level 140 mmol/L (136-145) 140 mmol/L (136-145) Potassium Level 4.2 mmol/L (3.5-5.1) 4.4 mmol/L (3.5-5.1) Chloride Level 103 mmol/L (98-107) 101 mmol/L (98-107) Carbon Dioxide Level 33 mmol/L (21-32) 30 mmol/L (21-32) Anion Gap 4 (6-14) 9 (6-14) Blood Urea Nitrogen 20 mg/dL (8-26) 21 mg/dL (8-26) Creatinine 0.9 mg/dL (0.7-1.3) 0.9 mg/dL (0.7-1.3) Estimated GFR (Cockcroft-Gault) 95.0 95.0 BUN/Creatinine Ratio 22 (6-20) 23 (6-20) Glucose Level 141 mg/dL (70-99) 107 mg/dL (70-99) Calcium Level 8.2 mg/dL (8.5-10.1) 8.2 mg/dL (8.5-10.1) Total Bilirubin 0.5 mg/dL (0.2-1.0) 0.5 mg/dL (0.2-1.0) Aspartate Amino Transf (AST/SGOT) 66 U/L (15-37) 79 U/L (15-37) Alanine Aminotransferase (ALT/SGPT) 137 U/L (16-63) 191 U/L (16-63) Alkaline Phosphatase 122 U/L (46-116) 129 U/L (46-116) Total Protein 6.3 g/dL (6.4-8.2) 6.3 g/dL (6.4-8.2) Albumin 2.1 g/dL (3.4-5.0) 2.0 g/dL (3.4-5.0) Albumin/Globulin Ratio 0.5 (1.0-1.7) 0.5 (1.0-1.7) White Blood Count 10.0 x10^3/uL (4.0-11.0) Red Blood Count 4.33 x10^6/uL (4.30-5.70) Hemoglobin 13.2 g/dL (13.0-17.5) Hematocrit 39.5 % (39.0-53.0) Mean Corpuscular Volume 91 fL (79-100) Mean Corpuscular Hemoglobin 31 pg (25-35) Mean Corpuscular Hemoglobin Concent 33 g/dL (31-37) Red Cell Distribution Width 13.3 % (11.5-14.5) Platelet Count 392 x10^3/uL (140-400) Neutrophils (%) (Auto) 89 % (31-73) Lymphocytes (%) (Auto) 6 % (24-48) Monocytes (%) (Auto) 4 % (0-9) Eosinophils (%) (Auto) 0 % (0-3) Basophils (%) (Auto) 0 % (0-3) Neutrophils # (Auto) 8.9 x10^3/uL (1.8-7.7) Lymphocytes # (Auto) 0.6 x10^3/uL (1.0-4.8) Monocytes # (Auto) 0.4 x10^3/uL (0.0-1.1) Eosinophils # (Auto) 0.0 x10^3/uL (0.0-0.7) Basophils # (Auto) 0.0 x10^3/uL (0.0-0.2) Laboratory Tests Test 08/02/21 09:50 08/03/21 04:40 Sodium Level 140 mmol/L (136-145) 140 mmol/L (136-145) Potassium Level 4.2 mmol/L (3.5-5.1) 4.4 mmol/L (3.5-5.1) Chloride Level 103 mmol/L (98-107) 101 mmol/L (98-107) Carbon Dioxide Level 33 mmol/L (21-32) 30 mmol/L (21-32) Anion Gap 4 (6-14) 9 (6-14) Blood Urea Nitrogen 20 mg/dL (8-26) 21 mg/dL (8-26) Creatinine 0.9 mg/dL (0.7-1.3) 0.9 mg/dL (0.7-1.3) Estimated GFR (Cockcroft-Gault) 95.0 95.0 BUN/Creatinine Ratio 22 (6-20) 23 (6-20) Glucose Level 141 mg/dL (70-99) 107 mg/dL (70-99) Calcium Level 8.2 mg/dL (8.5-10.1) 8.2 mg/dL (8.5-10.1) Total Bilirubin 0.5 mg/dL (0.2-1.0) 0.5 mg/dL (0.2-1.0) Aspartate Amino Transf (AST/SGOT) 66 U/L (15-37) 79 U/L (15-37) Alanine Aminotransferase (ALT/SGPT) 137 U/L (16-63) 191 U/L (16-63) Alkaline Phosphatase 122 U/L (46-116) 129 U/L (46-116) Total Protein 6.3 g/dL (6.4-8.2) 6.3 g/dL (6.4-8.2) Albumin 2.1 g/dL (3.4-5.0) 2.0 g/dL (3.4-5.0) Albumin/Globulin Ratio 0.5 (1.0-1.7) 0.5 (1.0-1.7) White Blood Count 10.0 x10^3/uL (4.0-11.0) Red Blood Count 4.33 x10^6/uL (4.30-5.70) Hemoglobin 13.2 g/dL (13.0-17.5) Hematocrit 39.5 % (39.0-53.0) Mean Corpuscular Volume 91 fL (79-100) Mean Corpuscular Hemoglobin 31 pg (25-35) Mean Corpuscular Hemoglobin Concent 33 g/dL (31-37) Red Cell Distribution Width 13.3 % (11.5-14.5) Platelet Count 392 x10^3/uL (140-400) Neutrophils (%) (Auto) 89 % (31-73) Lymphocytes (%) (Auto) 6 % (24-48) Monocytes (%) (Auto) 4 % (0-9) Eosinophils (%) (Auto) 0 % (0-3) Basophils (%) (Auto) 0 % (0-3) Neutrophils # (Auto) 8.9 x10^3/uL (1.8-7.7) Lymphocytes # (Auto) 0.6 x10^3/uL (1.0-4.8) Monocytes # (Auto) 0.4 x10^3/uL (0.0-1.1) Eosinophils # (Auto) 0.0 x10^3/uL (0.0-0.7) Basophils # (Auto) 0.0 x10^3/uL (0.0-0.2) Impression . IMPRESSION: 1. Acute hypoxemic respiratory failure. 2. COVID-19 viral pneumonia. 3. Acute respiratory distress syndrome. 4. Possible bacterial pneumonia. 5. Elevated liver function tests related to COVID. Plan . Updated 08/03 Prone positioning Continue current support Discontinue remdesivir, LFTs rising Steroid updated 08/02 Start IV fluids Continue current support Oxygen supplementation Remdesivir and steroids JORDEN PERDUE MD Aug 03, 2021 08:41
[2021-08-03] MEDS: IV RINGERS,LACTATED 1000ML 1,000 ML IV SCH ×2 (09:22→20:22)
[2021-08-03] MEDS: DEXAMETHASONE SOD PHOS 4 MG/ML VIAL IVP SCH (09:23)
[2021-08-03] MEDS: MULTIVITAMIN with MINERAL TABLET. PO SCH (09:23)
[2021-08-03] MEDS: ASPIRIN ENTERIC COATED 81 MG TABLET.DR. PO SCH (09:23)
[2021-08-03] MEDS: LACTOBACILLUS RHAMNOSUS GG 1 CAPSULE. PO SCH ×2 (09:23→20:24)
[2021-08-03] MEDS: SENNOSIDES/DOCUSATE 8.6/50MG TABLET. PO SCH ×3 (09:23→20:37)
[2021-08-03] MEDS: DOXYCYCLINE HYCLATE 100 MG in IV DEXTROSE 5% 100ML 100 ML IV SCH ×2 (09:25→20:23)
[2021-08-03] MEDS: REMDESIVIR 100mg in NORMAL SALINE 250ML X 4 DAYS IV SCH (10:38)
[2021-08-03] MEDS: ONDANSETRON PF 4 MG/2 ML VIAL. IVP PRN (10:51)
--- NOTE | 2021-08-03 12:22 | PDOC ---
[facility] [facility] PROGRESS NOTE Date of Service DOS: DATE: 08/03/21 TIME: 12:20 Chief Complaint Chief Complaint Acute respiratory failure with hypoxia due to COVID-19 virus (unvaccinated) Pneumonia due to COVID-19 virus History of Present Illness History of Present Illness 08/03/2021 Patient seen and examined He is still on 100% nonrebreather plus nasal cannula at 8 L Today he has become very anxious I ordered some Ativan for him Discussed with RN Chart reviewed He appears quite ill 08/02 Patient seen and examined bedside. Still on 100% nonrebreather O2 sat 91% Patient reported feeling worse and more weak than yesterday and reports nausea and vomiting Chart reviewed Discussed case with RN 08/01/2021 Patient seen and examined in the telemetry unit He is currently on 100% nonrebreather but satting 97% Discussed with RN Chart reviewed I ordered full Covid protocol including calling the pharmacy for remdesivir Vitals/I&O Vitals/I&O: Vital Signs Date Time Temp Pulse Resp B/P (MAP) Pulse Ox O2 Delivery O2 Flow Rate FiO2 08/03/21 07:55 97.8 71 22 141/88 (105) 91 NonRebreather Mask 15.0 97.8 I & O 08/02/21 08/02/21 08/03/21 15:00 23:00 07:00 Intake Total 360 ml 1100 ml 120 ml Balance 360 ml 1100 ml 120 ml Physical Exam General: Alert, Oriented X3, moderate distress, Other (Very anxious) Heart: No murmurs, Other (Tachycardic) Lungs: Crackles Abdomen: Normal bowel sounds Extremities: No cyanosis Skin: No rashes Labs Labs: Laboratory Tests Test 08/03/21 04:40 White Blood Count 10.0 x10^3/uL (4.0-11.0) Red Blood Count 4.33 x10^6/uL (4.30-5.70) Hemoglobin 13.2 g/dL (13.0-17.5) Hematocrit 39.5 % (39.0-53.0) Mean Corpuscular Volume 91 fL (79-100) Mean Corpuscular Hemoglobin 31 pg (25-35) Mean Corpuscular Hemoglobin Concent 33 g/dL (31-37) Red Cell Distribution Width 13.3 % (11.5-14.5) Platelet Count 392 x10^3/uL (140-400) Neutrophils (%) (Auto) 89 % (31-73) Lymphocytes (%) (Auto) 6 % (24-48) Monocytes (%) (Auto) 4 % (0-9) Eosinophils (%) (Auto) 0 % (0-3) Basophils (%) (Auto) 0 % (0-3) Neutrophils # (Auto) 8.9 x10^3/uL (1.8-7.7) Lymphocytes # (Auto) 0.6 x10^3/uL (1.0-4.8) Monocytes # (Auto) 0.4 x10^3/uL (0.0-1.1) Eosinophils # (Auto) 0.0 x10^3/uL (0.0-0.7) Basophils # (Auto) 0.0 x10^3/uL (0.0-0.2) Sodium Level 140 mmol/L (136-145) Potassium Level 4.4 mmol/L (3.5-5.1) Chloride Level 101 mmol/L (98-107) Carbon Dioxide Level 30 mmol/L (21-32) Anion Gap 9 (6-14) Blood Urea Nitrogen 21 mg/dL (8-26) Creatinine 0.9 mg/dL (0.7-1.3) Estimated GFR (Cockcroft-Gault) 95.0 BUN/Creatinine Ratio 23 (6-20) Glucose Level 107 mg/dL (70-99) Calcium Level 8.2 mg/dL (8.5-10.1) Total Bilirubin 0.5 mg/dL (0.2-1.0) Aspartate Amino Transf (AST/SGOT) 79 U/L (15-37) Alanine Aminotransferase (ALT/SGPT) 191 U/L (16-63) Alkaline Phosphatase 129 U/L (46-116) Total Protein 6.3 g/dL (6.4-8.2) Albumin 2.0 g/dL (3.4-5.0) Albumin/Globulin Ratio 0.5 (1.0-1.7) Assessment and Plan Assessmemt and Plan Problems Medical Problems: (1) Acute respiratory failure with hypoxia Status: Acute (2) Pneumonia due to COVID-19 virus Status: Acute Acute respiratory failure with hypoxia due to COVID-19 virus (unvaccinated) Pneumonia due to COVID-19 virus Plan Remdesivir Steroids Vitamins and minerals Broad-spectrum antibiotics Doxycycline Beta agonist Continue O2 per 100% nonrebreather and nasal cannula hope to titrate that down if possible Robitussin with codeine cough syrup Lovenox for DVT prophylaxis Aspirin Trend labs Encourage p.o. intake Prognosis guarded Appreciate pulmonary input CC time 32-minute Comment Review of Relevant I have reviewed the following items iam (where applicable) has been applied. Justifications for Admission Other Justification DON CHAUHAN III DO Aug 03, 2021 12:22
[2021-08-03 14:30] VITALS: BP 132/75
--- NOTE | 2021-08-03 15:59 | NUR ---
SS following for discharge planning. SS reviewed pt chart and discussed with pt RN. Pt is from home with spouse and is currently requiring oxygen at 15 liters non-rebreather and 10 liters nasal canula. COVID19 positive. Pt on IV Rocephin, IV Doxycycline, and IV Decadron. SS will continue to follow for discharge planning.
[2021-08-03 19:21] VITALS: BP 136/86
[2021-08-03] MEDS: cefTRIAXone IV Push 1 GM VIAL. IVP SCH (20:22)
[2021-08-03] MEDS: ENOXAPARIN 40 MG/0.4 ML SYRINGE. SQ SCH (20:23)
[2021-08-03] MEDS: ACETAMINOPHEN 325 MG TABLET. PO PRN (20:24)
[2021-08-03] MEDS: guaiFENesin/CODEINE 100mg/10mg 5 ML LIQUID PO PRN (20:41)
[2021-08-03] MEDS: oxyCODONE/APAP 5/325 1 TAB TABLET PO PRN (20:41)
[2021-08-03] MEDS: ZOLPIDEM 5 MG TABLET. PO PRN (22:34)
[2021-08-03 22:55] VITALS: BP 171/87
[2021-08-04] MEDS: IV RINGERS,LACTATED 1000ML 1,000 ML IV SCH ×3 (01:17→21:40)
[2021-08-04 02:53] VITALS: BP 148/85
[2021-08-04] MEDS: guaiFENesin/CODEINE 100mg/10mg 5 ML LIQUID PO PRN ×3 (04:26→21:40)
[2021-08-04 05:41] LABS: BASO % 0 % (0-3); EOS % 0 % (0-3); HEMATOCRIT 41.3 % (39.0-53.0); HEMOGLOBIN 13.6 g/dL (13.0-17.5); LYMPH # 0.7 x10^3/uL (1.0-4.8); LYMPH % 7 % (24-48); MEAN CORPUSCULAR HEMOGLOBIN 30 pg (25-35); MEAN CORPUSCULAR HGB CONC 33 g/dL (31-37); MEAN CORPUSCULAR VOLUME 92 fL (79-100); MONO # 0.3 x10^3/uL (0.0-1.1); MONO % 3 % (0-9); NEUT % 90 % (31-73); PLATELET COUNT 382 x10^3/uL (140-400); WHITE BLOOD COUNT 10.1 x10^3/uL (4.0-11.0)
[2021-08-04 06:11] LABS: ALBUMIN/GLOBULIN RATIO 0.5 (1.0-1.7); CALCIUM 8.2 mg/dL (8.5-10.1); CREATININE 0.7 mg/dL (0.7-1.3); GFR 126.9; POTASSIUM 4.2 mmol/L (3.5-5.1); TOTAL BILIRUBIN 0.7 mg/dL (0.2-1.0); TOTAL PROTEIN 5.7 g/dL (6.4-8.2)
[2021-08-04 07:00] VITALS: BP 149/79
[2021-08-04] MEDS: LACTOBACILLUS RHAMNOSUS GG 1 CAPSULE. PO SCH ×2 (08:18→21:39)
[2021-08-04] MEDS: MULTIVITAMIN with MINERAL TABLET. PO SCH (08:18)
[2021-08-04] MEDS: DEXAMETHASONE SOD PHOS 4 MG/ML VIAL IVP SCH (08:19)
[2021-08-04] MEDS: ASPIRIN ENTERIC COATED 81 MG TABLET.DR. PO SCH (08:19)
[2021-08-04] MEDS: SENNOSIDES/DOCUSATE 8.6/50MG TABLET. PO SCH ×2 (08:19→21:00)
[2021-08-04] MEDS: DOXYCYCLINE HYCLATE 100 MG in IV DEXTROSE 5% 100ML 100 ML IV SCH ×2 (08:21→19:38)
--- NOTE | 2021-08-04 08:43 | PDOC ---
PULMONARY PROGRESS NOTES DATE: 08/04/21 TIME: 08:42 Subjective Patient feels slightly better, oxygen requirements remain the same Vitals Vital Signs Date Time Temp Pulse Resp B/P (MAP) Pulse Ox O2 Delivery O2 Flow Rate FiO2 08/04/21 07:00 98.4 92 16 149/79 (102) 91 NonRebreather Mask 15.0 98.4 ROS: No Chest Pain, No Increase Cough General: Alert Lungs: Crackles Cardiovascular: S1, S2 Abdomen: Soft Neuro Exam: Alert Extremities: No Edema Skin: Warm Labs Laboratory Tests Test 08/02/21 09:50 08/03/21 04:40 08/04/21 04:55 Sodium Level 140 mmol/L (136-145) 140 mmol/L (136-145) 137 mmol/L (136-145) Potassium Level 4.2 mmol/L (3.5-5.1) 4.4 mmol/L (3.5-5.1) 4.2 mmol/L (3.5-5.1) Chloride Level 103 mmol/L (98-107) 101 mmol/L (98-107) 101 mmol/L (98-107) Carbon Dioxide Level 33 mmol/L (21-32) 30 mmol/L (21-32) 29 mmol/L (21-32) Anion Gap 4 (6-14) 9 (6-14) 7 (6-14) Blood Urea Nitrogen 20 mg/dL (8-26) 21 mg/dL (8-26) 16 mg/dL (8-26) Creatinine 0.9 mg/dL (0.7-1.3) 0.9 mg/dL (0.7-1.3) 0.7 mg/dL (0.7-1.3) Estimated GFR (Cockcroft-Gault) 95.0 95.0 126.9 BUN/Creatinine Ratio 22 (6-20) 23 (6-20) 23 (6-20) Glucose Level 141 mg/dL (70-99) 107 mg/dL (70-99) 90 mg/dL (70-99) Calcium Level 8.2 mg/dL (8.5-10.1) 8.2 mg/dL (8.5-10.1) 8.2 mg/dL (8.5-10.1) Total Bilirubin 0.5 mg/dL (0.2-1.0) 0.5 mg/dL (0.2-1.0) 0.7 mg/dL (0.2-1.0) Aspartate Amino Transf (AST/SGOT) 66 U/L (15-37) 79 U/L (15-37) 72 U/L (15-37) Alanine Aminotransferase (ALT/SGPT) 137 U/L (16-63) 191 U/L (16-63) 202 U/L (16-63) Alkaline Phosphatase 122 U/L (46-116) 129 U/L (46-116) 139 U/L (46-116) Total Protein 6.3 g/dL (6.4-8.2) 6.3 g/dL (6.4-8.2) 5.7 g/dL (6.4-8.2) Albumin 2.1 g/dL (3.4-5.0) 2.0 g/dL (3.4-5.0) 2.0 g/dL (3.4-5.0) Albumin/Globulin Ratio 0.5 (1.0-1.7) 0.5 (1.0-1.7) 0.5 (1.0-1.7) White Blood Count 10.0 x10^3/uL (4.0-11.0) 10.1 x10^3/uL (4.0-11.0) Red Blood Count 4.33 x10^6/uL (4.30-5.70) 4.50 x10^6/uL (4.30-5.70) Hemoglobin 13.2 g/dL (13.0-17.5) 13.6 g/dL (13.0-17.5) Hematocrit 39.5 % (39.0-53.0) 41.3 % (39.0-53.0) Mean Corpuscular Volume 91 fL (79-100) 92 fL (79-100) Mean Corpuscular Hemoglobin 31 pg (25-35) 30 pg (25-35) Mean Corpuscular Hemoglobin Concent 33 g/dL (31-37) 33 g/dL (31-37) Red Cell Distribution Width 13.3 % (11.5-14.5) 13.0 % (11.5-14.5) Platelet Count 392 x10^3/uL (140-400) 382 x10^3/uL (140-400) Neutrophils (%) (Auto) 89 % (31-73) 90 % (31-73) Lymphocytes (%) (Auto) 6 % (24-48) 7 % (24-48) Monocytes (%) (Auto) 4 % (0-9) 3 % (0-9) Eosinophils (%) (Auto) 0 % (0-3) 0 % (0-3) Basophils (%) (Auto) 0 % (0-3) 0 % (0-3) Neutrophils # (Auto) 8.9 x10^3/uL (1.8-7.7) 9.0 x10^3/uL (1.8-7.7) Lymphocytes # (Auto) 0.6 x10^3/uL (1.0-4.8) 0.7 x10^3/uL (1.0-4.8) Monocytes # (Auto) 0.4 x10^3/uL (0.0-1.1) 0.3 x10^3/uL (0.0-1.1) Eosinophils # (Auto) 0.0 x10^3/uL (0.0-0.7) 0.0 x10^3/uL (0.0-0.7) Basophils # (Auto) 0.0 x10^3/uL (0.0-0.2) 0.0 x10^3/uL (0.0-0.2) Laboratory Tests Test 08/04/21 04:55 White Blood Count 10.1 x10^3/uL (4.0-11.0) Red Blood Count 4.50 x10^6/uL (4.30-5.70) Hemoglobin 13.6 g/dL (13.0-17.5) Hematocrit 41.3 % (39.0-53.0) Mean Corpuscular Volume 92 fL (79-100) Mean Corpuscular Hemoglobin 30 pg (25-35) Mean Corpuscular Hemoglobin Concent 33 g/dL (31-37) Red Cell Distribution Width 13.0 % (11.5-14.5) Platelet Count 382 x10^3/uL (140-400) Neutrophils (%) (Auto) 90 % (31-73) Lymphocytes (%) (Auto) 7 % (24-48) Monocytes (%) (Auto) 3 % (0-9) Eosinophils (%) (Auto) 0 % (0-3) Basophils (%) (Auto) 0 % (0-3) Neutrophils # (Auto) 9.0 x10^3/uL (1.8-7.7) Lymphocytes # (Auto) 0.7 x10^3/uL (1.0-4.8) Monocytes # (Auto) 0.3 x10^3/uL (0.0-1.1) Eosinophils # (Auto) 0.0 x10^3/uL (0.0-0.7) Basophils # (Auto) 0.0 x10^3/uL (0.0-0.2) Sodium Level 137 mmol/L (136-145) Potassium Level 4.2 mmol/L (3.5-5.1) Chloride Level 101 mmol/L (98-107) Carbon Dioxide Level 29 mmol/L (21-32) Anion Gap 7 (6-14) Blood Urea Nitrogen 16 mg/dL (8-26) Creatinine 0.7 mg/dL (0.7-1.3) Estimated GFR (Cockcroft-Gault) 126.9 BUN/Creatinine Ratio 23 (6-20) Glucose Level 90 mg/dL (70-99) Calcium Level 8.2 mg/dL (8.5-10.1) Total Bilirubin 0.7 mg/dL (0.2-1.0) Aspartate Amino Transf (AST/SGOT) 72 U/L (15-37) Alanine Aminotransferase (ALT/SGPT) 202 U/L (16-63) Alkaline Phosphatase 139 U/L (46-116) Total Protein 5.7 g/dL (6.4-8.2) Albumin 2.0 g/dL (3.4-5.0) Albumin/Globulin Ratio 0.5 (1.0-1.7) Impression . IMPRESSION: 1. Acute hypoxemic respiratory failure. 2. COVID-19 viral pneumonia. 3. Acute respiratory distress syndrome. 4. Possible bacterial pneumonia. 5. Elevated liver function tests related to COVID. Plan . Updated 08/04 I spoke with via video call, reassured her that that things were stable, hopeful for full recovery LFTs reviewed Continue current support updated 08/03 Prone positioning Continue current support Discontinue remdesivir, LFTs rising Steroid updated 08/02 Start IV fluids Continue current support Oxygen supplementation Remdesivir and steroids JORDEN PERDUE MD Aug 04, 2021 08:43
[2021-08-04 09:03] LABS: % ATYL 1 % (0-0); % BANDS 6 % (0-9); % LYMPHS 6 % (24-48); % MONOS 1 % (0-10); % MYELOS 1 % (0-0); % SEGS 85 % (35-66); PLT ESTIMATE ADEQUATE (ADEQUATE)
[2021-08-04 11:14] VITALS: BP 121/63
--- NOTE | 2021-08-04 11:36 | PDOC ---
[facility] PROGRESS NOTE Date of Service DOS: DATE: 08/04/21 TIME: 11:34 Chief Complaint Chief Complaint Acute respiratory failure with hypoxia due to COVID-19 virus (unvaccinated) Pneumonia due to COVID-19 virus History of Present Illness History of Present Illness 08/04/2021 Patient seen and examined He is still on 100% nonrebreather plus nasal cannula oxygen His transaminases are slightly elevated so we are stopping the remdesivir Discussed with RN Discussed with case management Chart reviewed He still appears very ill Very anxious We are using as needed Ativan 08/03/2021 Patient seen and examined He is still on 100% nonrebreather plus nasal cannula at 8 L Today he has become very anxious I ordered some Ativan for him Discussed with RN Chart reviewed He appears quite ill 08/02 Patient seen and examined bedside. Still on 100% nonrebreather O2 sat 91% Patient reported feeling worse and more weak than yesterday and reports nausea and vomiting Chart reviewed Discussed case with RN 08/01/2021 Patient seen and examined in the telemetry unit He is currently on 100% nonrebreather but satting 97% Discussed with RN Chart reviewed I ordered full Covid protocol including calling the pharmacy for remdesivir Vitals/I&O Vitals/I&O: Vital Signs Date Time Temp Pulse Resp B/P (MAP) Pulse Ox O2 Delivery O2 Flow Rate FiO2 08/04/21 11:14 99.5 86 16 121/63 (82) 90 NonRebreather Mask 15.0 99.5 I & O 08/03/21 08/03/21 08/04/21 15:00 23:00 07:00 Intake Total 200 ml 1760 ml 0 ml Output Total 625 ml 300 ml Balance -425 ml 1760 ml -300 ml Physical Exam General: Alert, Oriented X3, moderate distress, Other (Very anxious) Heart: No murmurs, Other (Tachycardic) Lungs: Crackles Abdomen: Normal bowel sounds Extremities: No cyanosis Skin: No rashes Labs Labs: Laboratory Tests Test 08/04/21 04:55 White Blood Count 10.1 x10^3/uL (4.0-11.0) Red Blood Count 4.50 x10^6/uL (4.30-5.70) Hemoglobin 13.6 g/dL (13.0-17.5) Hematocrit 41.3 % (39.0-53.0) Mean Corpuscular Volume 92 fL (79-100) Mean Corpuscular Hemoglobin 30 pg (25-35) Mean Corpuscular Hemoglobin Concent 33 g/dL (31-37) Red Cell Distribution Width 13.0 % (11.5-14.5) Platelet Count 382 x10^3/uL (140-400) Neutrophils (%) (Auto) 90 % (31-73) Lymphocytes (%) (Auto) 7 % (24-48) Monocytes (%) (Auto) 3 % (0-9) Eosinophils (%) (Auto) 0 % (0-3) Basophils (%) (Auto) 0 % (0-3) Neutrophils # (Auto) 9.0 x10^3/uL (1.8-7.7) Lymphocytes # (Auto) 0.7 x10^3/uL (1.0-4.8) Monocytes # (Auto) 0.3 x10^3/uL (0.0-1.1) Eosinophils # (Auto) 0.0 x10^3/uL (0.0-0.7) Basophils # (Auto) 0.0 x10^3/uL (0.0-0.2) Segmented Neutrophils % 85 % (35-66) Band Neutrophils % 6 % (0-9) Lymphocytes % 6 % (24-48) Atypical Lymphocytes % (Manual) 1 % (0-0) Monocytes % 1 % (0-10) Myelocytes % 1 % (0-0) Platelet Estimate Adequate (ADEQUATE) Large Platelets Occ Giant Platelets Occ Sodium Level 137 mmol/L (136-145) Potassium Level 4.2 mmol/L (3.5-5.1) Chloride Level 101 mmol/L (98-107) Carbon Dioxide Level 29 mmol/L (21-32) Anion Gap 7 (6-14) Blood Urea Nitrogen 16 mg/dL (8-26) Creatinine 0.7 mg/dL (0.7-1.3) Estimated GFR (Cockcroft-Gault) 126.9 BUN/Creatinine Ratio 23 (6-20) Glucose Level 90 mg/dL (70-99) Calcium Level 8.2 mg/dL (8.5-10.1) Total Bilirubin 0.7 mg/dL (0.2-1.0) Aspartate Amino Transf (AST/SGOT) 72 U/L (15-37) Alanine Aminotransferase (ALT/SGPT) 202 U/L (16-63) Alkaline Phosphatase 139 U/L (46-116) Total Protein 5.7 g/dL (6.4-8.2) Albumin 2.0 g/dL (3.4-5.0) Albumin/Globulin Ratio 0.5 (1.0-1.7) Assessment and Plan Assessmemt and Plan Problems Medical Problems: (1) Acute respiratory failure with hypoxia Status: Acute (2) Pneumonia due to COVID-19 virus Status: Acute Acute respiratory failure with hypoxia due to COVID-19 virus (unvaccinated) Pneumonia due to COVID-19 virus Plan DC remdesivir remdesivir then continue the following; Steroids Vitamins and minerals Broad-spectrum antibiotics Doxycycline Beta agonist Continue O2 per 100% nonrebreather and nasal cannula hope to titrate that down if possible Robitussin with codeine cough syrup Lovenox for DVT prophylaxis Aspirin Trend labs Encourage p.o. intake Prognosis guarded Appreciate pulmonary input CC time 31-minute Comment Review of Relevant I have reviewed the following items iam (where applicable) has been applied. Justifications for Admission Other Justification DON CHAUHAN III DO Aug 04, 2021 11:36
[2021-08-04] MEDS: ACETAMINOPHEN 325 MG TABLET. PO PRN (14:00)
--- NOTE | 2021-08-04 15:13 | NUR ---
SS following up with discharge planning. SS reviewed pt chart and discussed with pt RN. Pt is currently requiring 15 liters non-rebreather and 10 liters nasal canula. COVID19 positive. Pt on IV Rocephin, IV Doxycycline, and IV Decadron. Not stable. SS will continue to follow for discharge planning.
[2021-08-04 15:19] VITALS: BP 141/92
[2021-08-04] MEDS: ENOXAPARIN 40 MG/0.4 ML SYRINGE. SQ SCH (19:37)
[2021-08-04] MEDS: cefTRIAXone IV Push 1 GM VIAL. IVP SCH (19:37)
[2021-08-04 19:43] VITALS: BP 160/75
[2021-08-04] MEDS: ZOLPIDEM 5 MG TABLET. PO PRN (21:40)
[2021-08-04] MEDS: oxyCODONE/APAP 5/325 1 TAB TABLET PO PRN (21:41)
[2021-08-04 22:28] VITALS: BP 146/87
[2021-08-05 02:12] VITALS: BP 158/92
[2021-08-05 05:13] LABS: BASO % 0 % (0-3); EOS # 0.2 x10^3/uL (0.0-0.7); EOS % 1 % (0-3); HEMATOCRIT 41.2 % (39.0-53.0); HEMOGLOBIN 13.8 g/dL (13.0-17.5); LYMPH # 0.9 x10^3/uL (1.0-4.8); LYMPH % 6 % (24-48); MEAN CORPUSCULAR HEMOGLOBIN 30 pg (25-35); MEAN CORPUSCULAR HGB CONC 33 g/dL (31-37); MEAN CORPUSCULAR VOLUME 91 fL (79-100); MONO # 0.5 x10^3/uL (0.0-1.1); MONO % 4 % (0-9); NEUT # 12.7 x10^3/uL (1.8-7.7); NEUT % 89 % (31-73); PLATELET COUNT 405 x10^3/uL (140-400); RED BLOOD COUNT 4.54 x10^6/uL (4.30-5.70); RED CELL DISTRIBUTION WIDTH 13.1 % (11.5-14.5); WHITE BLOOD COUNT 14.3 x10^3/uL (4.0-11.0)
[2021-08-05 05:47] LABS: ALBUMIN/GLOBULIN RATIO 0.5 (1.0-1.7); CALCIUM 8.1 mg/dL (8.5-10.1); CREATININE 0.7 mg/dL (0.7-1.3); GFR 126.9; POTASSIUM 4.1 mmol/L (3.5-5.1); TOTAL BILIRUBIN 0.7 mg/dL (0.2-1.0)
[2021-08-05 07:00] VITALS: BP 144/83
[2021-08-05] MEDS: ASPIRIN ENTERIC COATED 81 MG TABLET.DR. PO SCH (07:56)
[2021-08-05] MEDS: DOXYCYCLINE HYCLATE 100 MG in IV DEXTROSE 5% 100ML 100 ML IV SCH ×2 (07:56→19:39)
[2021-08-05] MEDS: IV RINGERS,LACTATED 1000ML 1,000 ML IV SCH ×2 (07:56→19:39)
[2021-08-05] MEDS: LACTOBACILLUS RHAMNOSUS GG 1 CAPSULE. PO SCH ×2 (07:57→21:50)
[2021-08-05] MEDS: MULTIVITAMIN with MINERAL TABLET. PO SCH (07:57)
[2021-08-05] MEDS: DEXAMETHASONE SOD PHOS 4 MG/ML VIAL IVP SCH (07:57)
[2021-08-05] MEDS: SENNOSIDES/DOCUSATE 8.6/50MG TABLET. PO SCH ×2 (07:57→21:00)
--- NOTE | 2021-08-05 09:59 | PDOC ---
PULMONARY PROGRESS NOTES DATE: 08/05/21 TIME: 09:59 Subjective Patient feels no different continues to cough up some mucus mixed in with blood Vitals Vital Signs Date Time Temp Pulse Resp B/P (MAP) Pulse Ox O2 Delivery O2 Flow Rate FiO2 08/05/21 08:00 Non-Rebreather 15.0 08/05/21 07:00 99.9 85 22 144/83 (103) 98 99.9 ROS: No Chest Pain, No Increase Cough General: Alert Lungs: Crackles Cardiovascular: S1, S2 Abdomen: Soft Neuro Exam: Alert Extremities: No Edema Skin: Warm Labs Laboratory Tests Test 08/03/21 12:50 08/04/21 04:55 08/05/21 04:35 Body Fluid Culture (LAB) (.) Urine Legionella Antigen Negative (Negative) Streptococcus pneumoniae Antigen Negative (Negative) Organism Identification (LAB) (.) LIZET Specimen Source Urine (.) White Blood Count 10.1 x10^3/uL (4.0-11.0) 14.3 x10^3/uL (4.0-11.0) Red Blood Count 4.50 x10^6/uL (4.30-5.70) 4.54 x10^6/uL (4.30-5.70) Hemoglobin 13.6 g/dL (13.0-17.5) 13.8 g/dL (13.0-17.5) Hematocrit 41.3 % (39.0-53.0) 41.2 % (39.0-53.0) Mean Corpuscular Volume 92 fL (79-100) 91 fL (79-100) Mean Corpuscular Hemoglobin 30 pg (25-35) 30 pg (25-35) Mean Corpuscular Hemoglobin Concent 33 g/dL (31-37) 33 g/dL (31-37) Red Cell Distribution Width 13.0 % (11.5-14.5) 13.1 % (11.5-14.5) Platelet Count 382 x10^3/uL (140-400) 405 x10^3/uL (140-400) Neutrophils (%) (Auto) 90 % (31-73) 89 % (31-73) Lymphocytes (%) (Auto) 7 % (24-48) 6 % (24-48) Monocytes (%) (Auto) 3 % (0-9) 4 % (0-9) Eosinophils (%) (Auto) 0 % (0-3) 1 % (0-3) Basophils (%) (Auto) 0 % (0-3) 0 % (0-3) Neutrophils # (Auto) 9.0 x10^3/uL (1.8-7.7) 12.7 x10^3/uL (1.8-7.7) Lymphocytes # (Auto) 0.7 x10^3/uL (1.0-4.8) 0.9 x10^3/uL (1.0-4.8) Monocytes # (Auto) 0.3 x10^3/uL (0.0-1.1) 0.5 x10^3/uL (0.0-1.1) Eosinophils # (Auto) 0.0 x10^3/uL (0.0-0.7) 0.2 x10^3/uL (0.0-0.7) Basophils # (Auto) 0.0 x10^3/uL (0.0-0.2) 0.0 x10^3/uL (0.0-0.2) Segmented Neutrophils % 85 % (35-66) Band Neutrophils % 6 % (0-9) Lymphocytes % 6 % (24-48) Atypical Lymphocytes % (Manual) 1 % (0-0) Monocytes % 1 % (0-10) Myelocytes % 1 % (0-0) Platelet Estimate Adequate (ADEQUATE) Large Platelets Occ Giant Platelets Occ Sodium Level 137 mmol/L (136-145) 136 mmol/L (136-145) Potassium Level 4.2 mmol/L (3.5-5.1) 4.1 mmol/L (3.5-5.1) Chloride Level 101 mmol/L (98-107) 99 mmol/L (98-107) Carbon Dioxide Level 29 mmol/L (21-32) 30 mmol/L (21-32) Anion Gap 7 (6-14) 7 (6-14) Blood Urea Nitrogen 16 mg/dL (8-26) 16 mg/dL (8-26) Creatinine 0.7 mg/dL (0.7-1.3) 0.7 mg/dL (0.7-1.3) Estimated GFR (Cockcroft-Gault) 126.9 126.9 BUN/Creatinine Ratio 23 (6-20) 23 (6-20) Glucose Level 90 mg/dL (70-99) 93 mg/dL (70-99) Calcium Level 8.2 mg/dL (8.5-10.1) 8.1 mg/dL (8.5-10.1) Total Bilirubin 0.7 mg/dL (0.2-1.0) 0.7 mg/dL (0.2-1.0) Aspartate Amino Transf (AST/SGOT) 72 U/L (15-37) 36 U/L (15-37) Alanine Aminotransferase (ALT/SGPT) 202 U/L (16-63) 136 U/L (16-63) Alkaline Phosphatase 139 U/L (46-116) 134 U/L (46-116) Total Protein 5.7 g/dL (6.4-8.2) 6.0 g/dL (6.4-8.2) Albumin 2.0 g/dL (3.4-5.0) 2.0 g/dL (3.4-5.0) Albumin/Globulin Ratio 0.5 (1.0-1.7) 0.5 (1.0-1.7) Laboratory Tests Test 08/05/21 04:35 White Blood Count 14.3 x10^3/uL (4.0-11.0) Red Blood Count 4.54 x10^6/uL (4.30-5.70) Hemoglobin 13.8 g/dL (13.0-17.5) Hematocrit 41.2 % (39.0-53.0) Mean Corpuscular Volume 91 fL (79-100) Mean Corpuscular Hemoglobin 30 pg (25-35) Mean Corpuscular Hemoglobin Concent 33 g/dL (31-37) Red Cell Distribution Width 13.1 % (11.5-14.5) Platelet Count 405 x10^3/uL (140-400) Neutrophils (%) (Auto) 89 % (31-73) Lymphocytes (%) (Auto) 6 % (24-48) Monocytes (%) (Auto) 4 % (0-9) Eosinophils (%) (Auto) 1 % (0-3) Basophils (%) (Auto) 0 % (0-3) Neutrophils # (Auto) 12.7 x10^3/uL (1.8-7.7) Lymphocytes # (Auto) 0.9 x10^3/uL (1.0-4.8) Monocytes # (Auto) 0.5 x10^3/uL (0.0-1.1) Eosinophils # (Auto) 0.2 x10^3/uL (0.0-0.7) Basophils # (Auto) 0.0 x10^3/uL (0.0-0.2) Sodium Level 136 mmol/L (136-145) Potassium Level 4.1 mmol/L (3.5-5.1) Chloride Level 99 mmol/L (98-107) Carbon Dioxide Level 30 mmol/L (21-32) Anion Gap 7 (6-14) Blood Urea Nitrogen 16 mg/dL (8-26) Creatinine 0.7 mg/dL (0.7-1.3) Estimated GFR (Cockcroft-Gault) 126.9 BUN/Creatinine Ratio 23 (6-20) Glucose Level 93 mg/dL (70-99) Calcium Level 8.1 mg/dL (8.5-10.1) Total Bilirubin 0.7 mg/dL (0.2-1.0) Aspartate Amino Transf (AST/SGOT) 36 U/L (15-37) Alanine Aminotransferase (ALT/SGPT) 136 U/L (16-63) Alkaline Phosphatase 134 U/L (46-116) Total Protein 6.0 g/dL (6.4-8.2) Albumin 2.0 g/dL (3.4-5.0) Albumin/Globulin Ratio 0.5 (1.0-1.7) Impression . IMPRESSION: 1. Acute hypoxemic respiratory failure/ARDS. 2. COVID-19 viral pneumonia. 3. Acute respiratory distress syndrome. 4. Possible bacterial pneumonia. 5. Elevated liver function tests related to COVID. Plan . Updated 08/05 Reassured patient that he should get better with time Continue current support LFTs trending down Urine Legionella antigen, strep antigen, negative Continue steroid Continue empiric antibiotics updated 08/04 I spoke with via video call, reassured her that that things were stable, hopeful for full recovery LFTs reviewed Continue current support JORDEN PERDUE MD Aug 05, 2021 09:59
[2021-08-05 11:00] VITALS: BP 150/88
--- NOTE | 2021-08-05 11:49 | PDOC ---
[facility] PROGRESS NOTE Date of Service DOS: DATE: 08/05/21 TIME: 11:47 Chief Complaint Chief Complaint Acute respiratory failure with hypoxia due to COVID-19 virus (unvaccinated) Pneumonia due to COVID-19 virus History of Present Illness History of Present Illness 08/05/2021 Patient seen and examined He is still on 100% nonrebreather and O2 per nasal cannula as well Extremely anxious (on as needed Ativan) Chart reviewed Discussed with RN Cussed with counter caser He completed 4 days of remdesivir and we stopped it yesterday due to slightly elevated liver function test Still appears very ill 08/04/2021 Patient seen and examined He is still on 100% nonrebreather plus nasal cannula oxygen His transaminases are slightly elevated so we are stopping the remdesivir Discussed with RN Discussed with case management Chart reviewed He still appears very ill Very anxious We are using as needed Ativan 08/03/2021 Patient seen and examined He is still on 100% nonrebreather plus nasal cannula at 8 L Today he has become very anxious I ordered some Ativan for him Discussed with RN Chart reviewed He appears quite ill 08/02 Patient seen and examined bedside. Still on 100% nonrebreather O2 sat 91% Patient reported feeling worse and more weak than yesterday and reports nausea and vomiting Chart reviewed Discussed case with RN 08/01/2021 Patient seen and examined in the telemetry unit He is currently on 100% nonrebreather but satting 97% Discussed with RN Chart reviewed I ordered full Covid protocol including calling the pharmacy for remdesivir Vitals/I&O Vitals/I&O: Vital Signs Date Time Temp Pulse Resp B/P (MAP) Pulse Ox O2 Delivery O2 Flow Rate FiO2 08/05/21 08:00 Non-Rebreather 15.0 08/05/21 07:00 99.9 85 22 144/83 (103) 98 99.9 I & O 08/04/21 08/04/21 08/05/21 15:00 23:00 07:00 Intake Total 1100 ml 300 ml Output Total 875 ml 425 ml Balance 225 ml -125 ml Physical Exam General: Alert, Oriented X3, moderate distress, Other (Very anxious) Heart: No murmurs, Other (Tachycardic) Lungs: Crackles Abdomen: Normal bowel sounds Extremities: No cyanosis Skin: No rashes Labs Labs: Laboratory Tests Test 08/05/21 04:35 White Blood Count 14.3 x10^3/uL (4.0-11.0) Red Blood Count 4.54 x10^6/uL (4.30-5.70) Hemoglobin 13.8 g/dL (13.0-17.5) Hematocrit 41.2 % (39.0-53.0) Mean Corpuscular Volume 91 fL (79-100) Mean Corpuscular Hemoglobin 30 pg (25-35) Mean Corpuscular Hemoglobin Concent 33 g/dL (31-37) Red Cell Distribution Width 13.1 % (11.5-14.5) Platelet Count 405 x10^3/uL (140-400) Neutrophils (%) (Auto) 89 % (31-73) Lymphocytes (%) (Auto) 6 % (24-48) Monocytes (%) (Auto) 4 % (0-9) Eosinophils (%) (Auto) 1 % (0-3) Basophils (%) (Auto) 0 % (0-3) Neutrophils # (Auto) 12.7 x10^3/uL (1.8-7.7) Lymphocytes # (Auto) 0.9 x10^3/uL (1.0-4.8) Monocytes # (Auto) 0.5 x10^3/uL (0.0-1.1) Eosinophils # (Auto) 0.2 x10^3/uL (0.0-0.7) Basophils # (Auto) 0.0 x10^3/uL (0.0-0.2) Sodium Level 136 mmol/L (136-145) Potassium Level 4.1 mmol/L (3.5-5.1) Chloride Level 99 mmol/L (98-107) Carbon Dioxide Level 30 mmol/L (21-32) Anion Gap 7 (6-14) Blood Urea Nitrogen 16 mg/dL (8-26) Creatinine 0.7 mg/dL (0.7-1.3) Estimated GFR (Cockcroft-Gault) 126.9 BUN/Creatinine Ratio 23 (6-20) Glucose Level 93 mg/dL (70-99) Calcium Level 8.1 mg/dL (8.5-10.1) Total Bilirubin 0.7 mg/dL (0.2-1.0) Aspartate Amino Transf (AST/SGOT) 36 U/L (15-37) Alanine Aminotransferase (ALT/SGPT) 136 U/L (16-63) Alkaline Phosphatase 134 U/L (46-116) Total Protein 6.0 g/dL (6.4-8.2) Albumin 2.0 g/dL (3.4-5.0) Albumin/Globulin Ratio 0.5 (1.0-1.7) Assessment and Plan Assessmemt and Plan Problems Medical Problems: (1) Acute respiratory failure with hypoxia Status: Acute (2) Pneumonia due to COVID-19 virus Status: Acute Acute respiratory failure with hypoxia due to COVID-19 virus (unvaccinated) Pneumonia due to COVID-19 virus Plan Got 4 days of remdesivir we had to stop it due to slight elevation of liver function test For now continue the following; Steroids Vitamins and minerals Broad-spectrum antibiotics Doxycycline Beta agonist Continue O2 per 100% nonrebreather and nasal cannula hope to titrate that down if possible Robitussin with codeine cough syrup Lovenox for DVT prophylaxis As needed Ativan Aspirin Trend labs Encourage p.o. intake Prognosis guarded Appreciate pulmonary input CC time 33-minute Comment Review of Relevant I have reviewed the following items iam (where applicable) has been applied. Justifications for Admission Other Justification DON CHAUHAN III DO Aug 05, 2021 11:49
[2021-08-05 15:00] VITALS: BP 135/84
[2021-08-05] MEDS: ACETAMINOPHEN 325 MG TABLET. PO PRN (16:39)
--- NOTE | 2021-08-05 17:31 | NUR ---
NURSING PT REQUESTS ATTEMPT AT O2 WEANING. NRB TURNED DOWN 2L, TO 13LPM HALF AN HOUR AGO. HE IS MAINTAINING SAT'S BETWEEN 93-95%.
[2021-08-05 19:33] VITALS: BP 133/78
[2021-08-05] MEDS: cefTRIAXone IV Push 1 GM VIAL. IVP SCH (19:39)
[2021-08-05] MEDS: ENOXAPARIN 40 MG/0.4 ML SYRINGE. SQ SCH (19:39)
[2021-08-05] MEDS: ZOLPIDEM 5 MG TABLET. PO PRN (21:50)
[2021-08-05] MEDS: guaiFENesin/CODEINE 100mg/10mg 5 ML LIQUID PO PRN (21:50)
[2021-08-05] MEDS: oxyCODONE/APAP 5/325 1 TAB TABLET PO PRN (21:50)
[2021-08-05 23:59] VITALS: BP 131/83
[2021-08-06 03:11] VITALS: BP 156/81
[2021-08-06] MEDS: IV RINGERS,LACTATED 1000ML 1,000 ML IV SCH ×2 (03:52→12:42)
[2021-08-06 07:00] VITALS: BP 140/77
[2021-08-06 08:15] LABS: BASO % 0 % (0-3); EOS # 0.2 x10^3/uL (0.0-0.7); EOS % 1 % (0-3); HEMOGLOBIN 13.6 g/dL (13.0-17.5); LYMPH # 0.9 x10^3/uL (1.0-4.8); LYMPH % 6 % (24-48); MEAN CORPUSCULAR HEMOGLOBIN 30 pg (25-35); MEAN CORPUSCULAR HGB CONC 33 g/dL (31-37); MEAN CORPUSCULAR VOLUME 91 fL (79-100); MONO # 0.7 x10^3/uL (0.0-1.1); MONO % 5 % (0-9); NEUT # 13.2 x10^3/uL (1.8-7.7); NEUT % 88 % (31-73); PLATELET COUNT 459 x10^3/uL (140-400)
[2021-08-06] MEDS: MULTIVITAMIN with MINERAL TABLET. PO SCH (08:32)
[2021-08-06] MEDS: ASPIRIN ENTERIC COATED 81 MG TABLET.DR. PO SCH (08:32)
[2021-08-06] MEDS: DEXAMETHASONE SOD PHOS 4 MG/ML VIAL IVP SCH (08:32)
[2021-08-06] MEDS: LACTOBACILLUS RHAMNOSUS GG 1 CAPSULE. PO SCH ×2 (08:32→20:15)
[2021-08-06] MEDS: guaiFENesin/CODEINE 100mg/10mg 5 ML LIQUID PO PRN ×2 (08:32→20:15)
[2021-08-06] MEDS: DOXYCYCLINE HYCLATE 100 MG in IV DEXTROSE 5% 100ML 100 ML IV SCH ×2 (08:32→20:16)
[2021-08-06] MEDS: SENNOSIDES/DOCUSATE 8.6/50MG TABLET. PO SCH ×2 (08:32→20:17)
[2021-08-06 08:58] LABS: ALBUMIN 1.9 g/dL (3.4-5.0); ALBUMIN/GLOBULIN RATIO 0.5 (1.0-1.7); CALCIUM 8.3 mg/dL (8.5-10.1); CREATININE 0.6 mg/dL (0.7-1.3); GFR 151.6; POTASSIUM 4.1 mmol/L (3.5-5.1); TOTAL BILIRUBIN 0.8 mg/dL (0.2-1.0)
--- NOTE | 2021-08-06 09:25 | PDOC ---
PULMONARY PROGRESS NOTES DATE: 08/06/21 TIME: 09:25 Subjective Feels better today, at times gets anxious Vitals Vital Signs Date Time Temp Pulse Resp B/P (MAP) Pulse Ox O2 Delivery O2 Flow Rate FiO2 08/06/21 07:00 98.8 77 20 140/77 (98) 93 NonRebreather Mask 15.0 98.8 ROS: No Chest Pain, No Increase Cough General: Alert Lungs: Crackles Cardiovascular: S1, S2 Abdomen: Soft Neuro Exam: Alert Extremities: No Edema Skin: Warm Labs Laboratory Tests Test 08/05/21 04:35 08/06/21 07:35 White Blood Count 14.3 x10^3/uL (4.0-11.0) 15.0 x10^3/uL (4.0-11.0) Red Blood Count 4.54 x10^6/uL (4.30-5.70) 4.50 x10^6/uL (4.30-5.70) Hemoglobin 13.8 g/dL (13.0-17.5) 13.6 g/dL (13.0-17.5) Hematocrit 41.2 % (39.0-53.0) 41.0 % (39.0-53.0) Mean Corpuscular Volume 91 fL (79-100) 91 fL (79-100) Mean Corpuscular Hemoglobin 30 pg (25-35) 30 pg (25-35) Mean Corpuscular Hemoglobin Concent 33 g/dL (31-37) 33 g/dL (31-37) Red Cell Distribution Width 13.1 % (11.5-14.5) 13.0 % (11.5-14.5) Platelet Count 405 x10^3/uL (140-400) 459 x10^3/uL (140-400) Neutrophils (%) (Auto) 89 % (31-73) 88 % (31-73) Lymphocytes (%) (Auto) 6 % (24-48) 6 % (24-48) Monocytes (%) (Auto) 4 % (0-9) 5 % (0-9) Eosinophils (%) (Auto) 1 % (0-3) 1 % (0-3) Basophils (%) (Auto) 0 % (0-3) 0 % (0-3) Neutrophils # (Auto) 12.7 x10^3/uL (1.8-7.7) 13.2 x10^3/uL (1.8-7.7) Lymphocytes # (Auto) 0.9 x10^3/uL (1.0-4.8) 0.9 x10^3/uL (1.0-4.8) Monocytes # (Auto) 0.5 x10^3/uL (0.0-1.1) 0.7 x10^3/uL (0.0-1.1) Eosinophils # (Auto) 0.2 x10^3/uL (0.0-0.7) 0.2 x10^3/uL (0.0-0.7) Basophils # (Auto) 0.0 x10^3/uL (0.0-0.2) 0.0 x10^3/uL (0.0-0.2) Sodium Level 136 mmol/L (136-145) 134 mmol/L (136-145) Potassium Level 4.1 mmol/L (3.5-5.1) 4.1 mmol/L (3.5-5.1) Chloride Level 99 mmol/L (98-107) 98 mmol/L (98-107) Carbon Dioxide Level 30 mmol/L (21-32) 30 mmol/L (21-32) Anion Gap 7 (6-14) 6 (6-14) Blood Urea Nitrogen 16 mg/dL (8-26) 14 mg/dL (8-26) Creatinine 0.7 mg/dL (0.7-1.3) 0.6 mg/dL (0.7-1.3) Estimated GFR (Cockcroft-Gault) 126.9 151.6 BUN/Creatinine Ratio 23 (6-20) 23 (6-20) Glucose Level 93 mg/dL (70-99) 84 mg/dL (70-99) Calcium Level 8.1 mg/dL (8.5-10.1) 8.3 mg/dL (8.5-10.1) Total Bilirubin 0.7 mg/dL (0.2-1.0) 0.8 mg/dL (0.2-1.0) Aspartate Amino Transf (AST/SGOT) 36 U/L (15-37) 38 U/L (15-37) Alanine Aminotransferase (ALT/SGPT) 136 U/L (16-63) 113 U/L (16-63) Alkaline Phosphatase 134 U/L (46-116) 115 U/L (46-116) Total Protein 6.0 g/dL (6.4-8.2) 6.0 g/dL (6.4-8.2) Albumin 2.0 g/dL (3.4-5.0) 1.9 g/dL (3.4-5.0) Albumin/Globulin Ratio 0.5 (1.0-1.7) 0.5 (1.0-1.7) Laboratory Tests Test 08/06/21 07:35 White Blood Count 15.0 x10^3/uL (4.0-11.0) Red Blood Count 4.50 x10^6/uL (4.30-5.70) Hemoglobin 13.6 g/dL (13.0-17.5) Hematocrit 41.0 % (39.0-53.0) Mean Corpuscular Volume 91 fL (79-100) Mean Corpuscular Hemoglobin 30 pg (25-35) Mean Corpuscular Hemoglobin Concent 33 g/dL (31-37) Red Cell Distribution Width 13.0 % (11.5-14.5) Platelet Count 459 x10^3/uL (140-400) Neutrophils (%) (Auto) 88 % (31-73) Lymphocytes (%) (Auto) 6 % (24-48) Monocytes (%) (Auto) 5 % (0-9) Eosinophils (%) (Auto) 1 % (0-3) Basophils (%) (Auto) 0 % (0-3) Neutrophils # (Auto) 13.2 x10^3/uL (1.8-7.7) Lymphocytes # (Auto) 0.9 x10^3/uL (1.0-4.8) Monocytes # (Auto) 0.7 x10^3/uL (0.0-1.1) Eosinophils # (Auto) 0.2 x10^3/uL (0.0-0.7) Basophils # (Auto) 0.0 x10^3/uL (0.0-0.2) Sodium Level 134 mmol/L (136-145) Potassium Level 4.1 mmol/L (3.5-5.1) Chloride Level 98 mmol/L (98-107) Carbon Dioxide Level 30 mmol/L (21-32) Anion Gap 6 (6-14) Blood Urea Nitrogen 14 mg/dL (8-26) Creatinine 0.6 mg/dL (0.7-1.3) Estimated GFR (Cockcroft-Gault) 151.6 BUN/Creatinine Ratio 23 (6-20) Glucose Level 84 mg/dL (70-99) Calcium Level 8.3 mg/dL (8.5-10.1) Total Bilirubin 0.8 mg/dL (0.2-1.0) Aspartate Amino Transf (AST/SGOT) 38 U/L (15-37) Alanine Aminotransferase (ALT/SGPT) 113 U/L (16-63) Alkaline Phosphatase 115 U/L (46-116) Total Protein 6.0 g/dL (6.4-8.2) Albumin 1.9 g/dL (3.4-5.0) Albumin/Globulin Ratio 0.5 (1.0-1.7) Impression . IMPRESSION: 1. Acute hypoxemic respiratory failure/ARDS. 2. COVID-19 viral pneumonia. 3. Acute respiratory distress syndrome. 4. Possible bacterial pneumonia. 5. Elevated liver function tests related to COVID. Plan . Updated 08/06 I reassured patient that he will improve with time I referred him to a rosario on smart phone for meditation Continue current support updated 08/05 Reassured patient that he should get better with time Continue current support LFTs trending down Urine Legionella antigen, strep antigen, negative Continue steroid Continue empiric antibiotics updated 08/04 I spoke with via video call, reassured her that that things were stable, ho peful for full recovery LFTs reviewed Continue current support JORDEN PERDUE MD Aug 06, 2021 09:25
[2021-08-06 11:00] VITALS: BP 135/68
[2021-08-06] MEDS: oxyCODONE/APAP 5/325 1 TAB TABLET PO PRN ×2 (11:15→20:15)
--- NOTE | 2021-08-06 14:33 | PDOC ---
[facility] [facility] PROGRESS NOTE Date of Service DOS: DATE: 08/06/21 TIME: 14:33 Chief Complaint Chief Complaint Acute respiratory failure with hypoxia due to COVID-19 virus (unvaccinated) Pneumonia due to COVID-19 virus History of Present Illness History of Present Illness 08/06/2021 Patient seen and examined He is still on 100% nonrebreather and O2 per nasal cannula as well markedly anxious Chart reviewed Discussed with SUNDAR Jimenez with correctional counselor/case manager He completed 4 days of remdesivir and we stopped it yesterday due to slightly e levated liver function test Still appears very ill COVID Vitals/I&O Vitals/I&O: Vital Signs Date Time Temp Pulse Resp B/P (MAP) Pulse Ox O2 Delivery O2 Flow Rate FiO2 08/06/21 11:00 96.5 64 20 135/68 (90) 98 NonRebreather Mask 15.0 96.5 I & O 08/05/21 08/05/21 08/06/21 15:00 23:00 07:00 Intake Total 620 ml 450 ml 400 ml Output Total 800 ml 1600 ml 625 ml Balance -180 ml -1150 ml -225 ml Physical Exam General: Alert, Oriented X3, moderate distress, Other (Very anxious) Heart: No murmurs, Other (Tachycardic) Lungs: Crackles Abdomen: Normal bowel sounds Extremities: No cyanosis Skin: No rashes Labs Labs: Laboratory Tests Test 08/06/21 07:35 White Blood Count 15.0 x10^3/uL (4.0-11.0) Red Blood Count 4.50 x10^6/uL (4.30-5.70) Hemoglobin 13.6 g/dL (13.0-17.5) Hematocrit 41.0 % (39.0-53.0) Mean Corpuscular Volume 91 fL (79-100) Mean Corpuscular Hemoglobin 30 pg (25-35) Mean Corpuscular Hemoglobin Concent 33 g/dL (31-37) Red Cell Distribution Width 13.0 % (11.5-14.5) Platelet Count 459 x10^3/uL (140-400) Neutrophils (%) (Auto) 88 % (31-73) Lymphocytes (%) (Auto) 6 % (24-48) Monocytes (%) (Auto) 5 % (0-9) Eosinophils (%) (Auto) 1 % (0-3) Basophils (%) (Auto) 0 % (0-3) Neutrophils # (Auto) 13.2 x10^3/uL (1.8-7.7) Lymphocytes # (Auto) 0.9 x10^3/uL (1.0-4.8) Monocytes # (Auto) 0.7 x10^3/uL (0.0-1.1) Eosinophils # (Auto) 0.2 x10^3/uL (0.0-0.7) Basophils # (Auto) 0.0 x10^3/uL (0.0-0.2) Sodium Level 134 mmol/L (136-145) Potassium Level 4.1 mmol/L (3.5-5.1) Chloride Level 98 mmol/L (98-107) Carbon Dioxide Level 30 mmol/L (21-32) Anion Gap 6 (6-14) Blood Urea Nitrogen 14 mg/dL (8-26) Creatinine 0.6 mg/dL (0.7-1.3) Estimated GFR (Cockcroft-Gault) 151.6 BUN/Creatinine Ratio 23 (6-20) Glucose Level 84 mg/dL (70-99) Calcium Level 8.3 mg/dL (8.5-10.1) Total Bilirubin 0.8 mg/dL (0.2-1.0) Aspartate Amino Transf (AST/SGOT) 38 U/L (15-37) Alanine Aminotransferase (ALT/SGPT) 113 U/L (16-63) Alkaline Phosphatase 115 U/L (46-116) Total Protein 6.0 g/dL (6.4-8.2) Albumin 1.9 g/dL (3.4-5.0) Albumin/Globulin Ratio 0.5 (1.0-1.7) Assessment and Plan Assessmemt and Plan Problems Medical Problems: (1) Acute respiratory failure with hypoxia Status: Acute (2) Pneumonia due to COVID-19 virus Status: Acute Comment Review of Relevant I have reviewed the following items iam (where applicable) has been applied. Justifications for Admission Other Justification CARMEN GRANT MD Aug 06, 2021 14:33
[2021-08-06 15:00] VITALS: BP 143/78
[2021-08-06 19:00] VITALS: BP 133/81
[2021-08-06] MEDS: ZOLPIDEM 5 MG TABLET. PO PRN (20:15)
[2021-08-06] MEDS: ENOXAPARIN 40 MG/0.4 ML SYRINGE. SQ SCH (20:16)
[2021-08-06] MEDS: cefTRIAXone IV Push 1 GM VIAL. IVP SCH (20:16)
[2021-08-06 23:00] VITALS: BP 125/79
[2021-08-07] MEDS: IV RINGERS,LACTATED 1000ML 1,000 ML IV SCH ×3 (00:08→20:51)
[2021-08-07 03:00] VITALS: BP 108/71
[2021-08-07 07:00] VITALS: BP 125/74
--- NOTE | 2021-08-07 08:45 | PDOC ---
PULMONARY PROGRESS NOTES DATE: 08/07/21 TIME: 08:45 Subjective Patient feels better today, less cough, less short of air FiO2 requirements have decreased Vitals Vital Signs Date Time Temp Pulse Resp B/P (MAP) Pulse Ox O2 Delivery O2 Flow Rate FiO2 08/07/21 07:00 98.3 73 18 125/74 (91) 97 NonRebreather Mask 15.0 98.3 ROS: No Nausea, No Chest Pain, No Abdominal Pain, No Increase Cough General: Alert Lungs: Crackles Cardiovascular: S1, S2 Abdomen: Soft Neuro Exam: Alert Extremities: No Edema Skin: Warm Labs Laboratory Tests Test 08/06/21 07:35 White Blood Count 15.0 x10^3/uL (4.0-11.0) Red Blood Count 4.50 x10^6/uL (4.30-5.70) Hemoglobin 13.6 g/dL (13.0-17.5) Hematocrit 41.0 % (39.0-53.0) Mean Corpuscular Volume 91 fL (79-100) Mean Corpuscular Hemoglobin 30 pg (25-35) Mean Corpuscular Hemoglobin Concent 33 g/dL (31-37) Red Cell Distribution Width 13.0 % (11.5-14.5) Platelet Count 459 x10^3/uL (140-400) Neutrophils (%) (Auto) 88 % (31-73) Lymphocytes (%) (Auto) 6 % (24-48) Monocytes (%) (Auto) 5 % (0-9) Eosinophils (%) (Auto) 1 % (0-3) Basophils (%) (Auto) 0 % (0-3) Neutrophils # (Auto) 13.2 x10^3/uL (1.8-7.7) Lymphocytes # (Auto) 0.9 x10^3/uL (1.0-4.8) Monocytes # (Auto) 0.7 x10^3/uL (0.0-1.1) Eosinophils # (Auto) 0.2 x10^3/uL (0.0-0.7) Basophils # (Auto) 0.0 x10^3/uL (0.0-0.2) Sodium Level 134 mmol/L (136-145) Potassium Level 4.1 mmol/L (3.5-5.1) Chloride Level 98 mmol/L (98-107) Carbon Dioxide Level 30 mmol/L (21-32) Anion Gap 6 (6-14) Blood Urea Nitrogen 14 mg/dL (8-26) Creatinine 0.6 mg/dL (0.7-1.3) Estimated GFR (Cockcroft-Gault) 151.6 BUN/Creatinine Ratio 23 (6-20) Glucose Level 84 mg/dL (70-99) Calcium Level 8.3 mg/dL (8.5-10.1) Total Bilirubin 0.8 mg/dL (0.2-1.0) Aspartate Amino Transf (AST/SGOT) 38 U/L (15-37) Alanine Aminotransferase (ALT/SGPT) 113 U/L (16-63) Alkaline Phosphatase 115 U/L (46-116) Total Protein 6.0 g/dL (6.4-8.2) Albumin 1.9 g/dL (3.4-5.0) Albumin/Globulin Ratio 0.5 (1.0-1.7) Impression . IMPRESSION: 1. Acute hypoxemic respiratory failure/ARDS. 2. COVID-19 viral pneumonia. 3. Acute respiratory distress syndrome. 4. Possible bacterial pneumonia. 5. Elevated liver function tests related to COVID. Plan . Updated 08/07 Discussed with RN Continue titrating FiO2 down On exam less rhonchi better airflow updated 08/06 I reassured patient that he will improve with time I referred him to a rosario on smart phone for meditation Continue current support updated 08/05 Reassured patient that he should get better with time Continue current support LFTs trending down Urine Legionella antigen, strep antigen, negative Continue steroid Continue empiric antibiotics updated 08/04 I spoke with via video call, reassured her that that things were stable, hopeful for full recovery LFTs reviewed Continue current support JORDEN PERDUE MD Aug 07, 2021 08:45
[2021-08-07] MEDS: MULTIVITAMIN with MINERAL TABLET. PO SCH (08:46)
[2021-08-07] MEDS: DEXAMETHASONE SOD PHOS 4 MG/ML VIAL IVP SCH (08:46)
[2021-08-07] MEDS: ASPIRIN ENTERIC COATED 81 MG TABLET.DR. PO SCH (08:46)
[2021-08-07] MEDS: oxyCODONE/APAP 5/325 1 TAB TABLET PO PRN ×2 (08:47→21:05)
[2021-08-07] MEDS: SENNOSIDES/DOCUSATE 8.6/50MG TABLET. PO SCH ×2 (08:47→21:00)
[2021-08-07] MEDS: LACTOBACILLUS RHAMNOSUS GG 1 CAPSULE. PO SCH ×2 (08:47→20:49)
[2021-08-07] MEDS: DOXYCYCLINE HYCLATE 100 MG in IV DEXTROSE 5% 100ML 100 ML IV SCH ×2 (08:52→20:51)
[2021-08-07 09:04] LABS: BASO % 0 % (0-3); EOS # 0.2 x10^3/uL (0.0-0.7); EOS % 2 % (0-3); HEMATOCRIT 40.3 % (39.0-53.0); HEMOGLOBIN 13.3 g/dL (13.0-17.5); LYMPH % 7 % (24-48); MEAN CORPUSCULAR HEMOGLOBIN 30 pg (25-35); MEAN CORPUSCULAR HGB CONC 33 g/dL (31-37); MEAN CORPUSCULAR VOLUME 91 fL (79-100); MONO % 7 % (0-9); NEUT # 12.2 x10^3/uL (1.8-7.7); NEUT % 85 % (31-73); PLATELET COUNT 490 x10^3/uL (140-400); RED BLOOD COUNT 4.41 x10^6/uL (4.30-5.70); WHITE BLOOD COUNT 14.4 x10^3/uL (4.0-11.0)
[2021-08-07] MEDS: ONDANSETRON PF 4 MG/2 ML VIAL. IVP PRN ×2 (09:06→17:02)
[2021-08-07 09:30] LABS: ALBUMIN/GLOBULIN RATIO 0.5 (1.0-1.7); CALCIUM 8.7 mg/dL (8.5-10.1); CREATININE 0.7 mg/dL (0.7-1.3); GFR 126.9; POTASSIUM 4.2 mmol/L (3.5-5.1); TOTAL BILIRUBIN 0.8 mg/dL (0.2-1.0); TOTAL PROTEIN 5.9 g/dL (6.4-8.2)
[2021-08-07 11:00] VITALS: BP 107/68
[2021-08-07 15:00] VITALS: BP 141/84
--- NOTE | 2021-08-07 15:30 | PDOC ---
[facility] [facility] PROGRESS NOTE Date of Service DOS: DATE: 08/07/21 TIME: 15:29 Chief Complaint Chief Complaint Acute respiratory failure with hypoxia due to COVID-19 virus (unvaccinated) Pneumonia due to COVID-19 virus History of Present Illness History of Present Illness 08/07 feels much better today able to wean 02 down some, off ventimask, on 10 liters able to eat some his anxiety is much better today 08/06/2021 Patient seen and examined He is still on 100% nonrebreather and O2 per nasal cannula as well markedly anxious Chart reviewed Discussed with SUNDAR Jimenez with community case manager He completed 4 days of remdesivir and we stopped it yesterday due to slightly elevated liver function test Still appears very ill COVID Vitals/I&O Vitals/I&O: Vital Signs Date Time Temp Pulse Resp B/P (MAP) Pulse Ox O2 Delivery O2 Flow Rate FiO2 08/07/21 12:04 97 15.0 08/07/21 11:00 97.9 77 17 107/68 (81) NonRebreather Mask 97.9 I & O 08/06/21 08/06/21 08/07/21 15:00 23:00 07:00 Intake Total 470 ml 720 ml 1000 ml Output Total 1100 ml Balance 470 ml 720 ml -100 ml Physical Exam General: Alert, Oriented X3, moderate distress, Other (Very anxious) Heart: No murmurs, Other (Tachycardic) Lungs: Crackles Abdomen: Normal bowel sounds Extremities: No cyanosis Skin: No rashes Labs Labs: Laboratory Tests Test 08/07/21 08:55 White Blood Count 14.4 x10^3/uL (4.0-11.0) Red Blood Count 4.41 x10^6/uL (4.30-5.70) Hemoglobin 13.3 g/dL (13.0-17.5) Hematocrit 40.3 % (39.0-53.0) Mean Corpuscular Volume 91 fL (79-100) Mean Corpuscular Hemoglobin 30 pg (25-35) Mean Corpuscular Hemoglobin Concent 33 g/dL (31-37) Red Cell Distribution Width 13.0 % (11.5-14.5) Platelet Count 490 x10^3/uL (140-400) Neutrophils (%) (Auto) 85 % (31-73) Lymphocytes (%) (Auto) 7 % (24-48) Monocytes (%) (Auto) 7 % (0-9) Eosinophils (%) (Auto) 2 % (0-3) Basophils (%) (Auto) 0 % (0-3) Neutrophils # (Auto) 12.2 x10^3/uL (1.8-7.7) Lymphocytes # (Auto) 1.0 x10^3/uL (1.0-4.8) Monocytes # (Auto) 1.0 x10^3/uL (0.0-1.1) Eosinophils # (Auto) 0.2 x10^3/uL (0.0-0.7) Basophils # (Auto) 0.0 x10^3/uL (0.0-0.2) Sodium Level 134 mmol/L (136-145) Potassium Level 4.2 mmol/L (3.5-5.1) Chloride Level 95 mmol/L (98-107) Carbon Dioxide Level 31 mmol/L (21-32) Anion Gap 8 (6-14) Blood Urea Nitrogen 14 mg/dL (8-26) Creatinine 0.7 mg/dL (0.7-1.3) Estimated GFR (Cockcroft-Gault) 126.9 BUN/Creatinine Ratio 20 (6-20) Glucose Level 86 mg/dL (70-99) Calcium Level 8.7 mg/dL (8.5-10.1) Total Bilirubin 0.8 mg/dL (0.2-1.0) Aspartate Amino Transf (AST/SGOT) 37 U/L (15-37) Alanine Aminotransferase (ALT/SGPT) 106 U/L (16-63) Alkaline Phosphatase 117 U/L (46-116) Total Protein 5.9 g/dL (6.4-8.2) Albumin 2.0 g/dL (3.4-5.0) Albumin/Globulin Ratio 0.5 (1.0-1.7) Assessment and Plan Assessmemt and Plan Problems Medical Problems: (1) Acute respiratory failure with hypoxia Status: Acute (2) Pneumonia due to COVID-19 virus Status: Acute Comment Review of Relevant I have reviewed the following items iam (where applicable) has been applied. Justifications for Admission Other Justification CARMEN GRANT MD Aug 07, 2021 15:30
[2021-08-07 19:40] VITALS: BP 128/81
[2021-08-07] MEDS: cefTRIAXone IV Push 1 GM VIAL. IVP SCH (20:50)
[2021-08-07] MEDS: ENOXAPARIN 40 MG/0.4 ML SYRINGE. SQ SCH (20:52)
[2021-08-07] MEDS: ZOLPIDEM 5 MG TABLET. PO PRN (21:04)
[2021-08-07 23:15] VITALS: BP 149/67
[2021-08-08 03:05] VITALS: BP 132/77
[2021-08-08] MEDS: IV RINGERS,LACTATED 1000ML 1,000 ML IV SCH ×2 (06:45→16:45)
[2021-08-08 07:55] VITALS: BP 123/71
[2021-08-08] MEDS: SENNOSIDES/DOCUSATE 8.6/50MG TABLET. PO SCH ×2 (08:28→21:00)
[2021-08-08] MEDS: LACTOBACILLUS RHAMNOSUS GG 1 CAPSULE. PO SCH ×2 (08:29→20:54)
[2021-08-08] MEDS: MULTIVITAMIN with MINERAL TABLET. PO SCH (08:29)
[2021-08-08] MEDS: DEXAMETHASONE SOD PHOS 4 MG/ML VIAL IVP SCH (08:29)
[2021-08-08] MEDS: ASPIRIN ENTERIC COATED 81 MG TABLET.DR. PO SCH (08:29)
[2021-08-08] MEDS: DOXYCYCLINE HYCLATE 100 MG in IV DEXTROSE 5% 100ML 100 ML IV SCH ×2 (08:31→20:53)
--- NOTE | 2021-08-08 08:31 | PDOC ---
PULMONARY PROGRESS NOTES DATE: 08/08/21 TIME: 08:29 Subjective Patient feels better today, sob cough better on nrb mask and nc as needed Vitals Vital Signs Date Time Temp Pulse Resp B/P (MAP) Pulse Ox O2 Delivery O2 Flow Rate FiO2 08/08/21 07:55 98.4 22 123/71 (88) 94 NonRebreather Mask 15.0 98.4 08/08/21 03:05 58 ROS: No Nausea, No Chest Pain, No Abdominal Pain, No Increase Cough General: Alert Lungs: Other (no accessory muscle use) Cardiovascular: S1, S2 Abdomen: Other (obese) Neuro Exam: Alert Extremities: No Edema Skin: No Rashes Labs Laboratory Tests Test 08/07/21 08:55 White Blood Count 14.4 x10^3/uL (4.0-11.0) Red Blood Count 4.41 x10^6/uL (4.30-5.70) Hemoglobin 13.3 g/dL (13.0-17.5) Hematocrit 40.3 % (39.0-53.0) Mean Corpuscular Volume 91 fL (79-100) Mean Corpuscular Hemoglobin 30 pg (25-35) Mean Corpuscular Hemoglobin Concent 33 g/dL (31-37) Red Cell Distribution Width 13.0 % (11.5-14.5) Platelet Count 490 x10^3/uL (140-400) Neutrophils (%) (Auto) 85 % (31-73) Lymphocytes (%) (Auto) 7 % (24-48) Monocytes (%) (Auto) 7 % (0-9) Eosinophils (%) (Auto) 2 % (0-3) Basophils (%) (Auto) 0 % (0-3) Neutrophils # (Auto) 12.2 x10^3/uL (1.8-7.7) Lymphocytes # (Auto) 1.0 x10^3/uL (1.0-4.8) Monocytes # (Auto) 1.0 x10^3/uL (0.0-1.1) Eosinophils # (Auto) 0.2 x10^3/uL (0.0-0.7) Basophils # (Auto) 0.0 x10^3/uL (0.0-0.2) Sodium Level 134 mmol/L (136-145) Potassium Level 4.2 mmol/L (3.5-5.1) Chloride Level 95 mmol/L (98-107) Carbon Dioxide Level 31 mmol/L (21-32) Anion Gap 8 (6-14) Blood Urea Nitrogen 14 mg/dL (8-26) Creatinine 0.7 mg/dL (0.7-1.3) Estimated GFR (Cockcroft-Gault) 126.9 BUN/Creatinine Ratio 20 (6-20) Glucose Level 86 mg/dL (70-99) Calcium Level 8.7 mg/dL (8.5-10.1) Total Bilirubin 0.8 mg/dL (0.2-1.0) Aspartate Amino Transf (AST/SGOT) 37 U/L (15-37) Alanine Aminotransferase (ALT/SGPT) 106 U/L (16-63) Alkaline Phosphatase 117 U/L (46-116) Total Protein 5.9 g/dL (6.4-8.2) Albumin 2.0 g/dL (3.4-5.0) Albumin/Globulin Ratio 0.5 (1.0-1.7) Laboratory Tests Test 08/07/21 08:55 White Blood Count 14.4 x10^3/uL (4.0-11.0) Red Blood Count 4.41 x10^6/uL (4.30-5.70) Hemoglobin 13.3 g/dL (13.0-17.5) Hematocrit 40.3 % (39.0-53.0) Mean Corpuscular Volume 91 fL (79-100) Mean Corpuscular Hemoglobin 30 pg (25-35) Mean Corpuscular Hemoglobin Concent 33 g/dL (31-37) Red Cell Distribution Width 13.0 % (11.5-14.5) Platelet Count 490 x10^3/uL (140-400) Neutrophils (%) (Auto) 85 % (31-73) Lymphocytes (%) (Auto) 7 % (24-48) Monocytes (%) (Auto) 7 % (0-9) Eosinophils (%) (Auto) 2 % (0-3) Basophils (%) (Auto) 0 % (0-3) Neutrophils # (Auto) 12.2 x10^3/uL (1.8-7.7) Lymphocytes # (Auto) 1.0 x10^3/uL (1.0-4.8) Monocytes # (Auto) 1.0 x10^3/uL (0.0-1.1) Eosinophils # (Auto) 0.2 x10^3/uL (0.0-0.7) Basophils # (Auto) 0.0 x10^3/uL (0.0-0.2) Sodium Level 134 mmol/L (136-145) Potassium Level 4.2 mmol/L (3.5-5.1) Chloride Level 95 mmol/L (98-107) Carbon Dioxide Level 31 mmol/L (21-32) Anion Gap 8 (6-14) Blood Urea Nitrogen 14 mg/dL (8-26) Creatinine 0.7 mg/dL (0.7-1.3) Estimated GFR (Cockcroft-Gault) 126.9 BUN/Creatinine Ratio 20 (6-20) Glucose Level 86 mg/dL (70-99) Calcium Level 8.7 mg/dL (8.5-10.1) Total Bilirubin 0.8 mg/dL (0.2-1.0) Aspartate Amino Transf (AST/SGOT) 37 U/L (15-37) Alanine Aminotransferase (ALT/SGPT) 106 U/L (16-63) Alkaline Phosphatase 117 U/L (46-116) Total Protein 5.9 g/dL (6.4-8.2) Albumin 2.0 g/dL (3.4-5.0) Albumin/Globulin Ratio 0.5 (1.0-1.7) Impression . IMPRESSION: 1. Acute hypoxemic respiratory failure/ARDS. 2. COVID-19 viral pneumonia. 3. Acute respiratory distress syndrome. 4. Possible bacterial pneumonia. 5. Elevated liver function tests related to COVID. Plan . Updated 08/08 titrate fio2 to keep sat 90% self proning as tolerated steroid abx Discussed with RN pt Updated 08/07 Discussed with RN Continue titrating FiO2 down On exam less rhonchi better airflow updated 08/06 I reassured patient that he will improve with time I referred him to a rosario on smart phone for meditation Continue current support updated 08/05 Reassured patient that he should get better with time Continue current support LFTs trending down Urine Legionella antigen, strep antigen, negative Continue steroid Continue empiric antibiotics updated 08/04 I spoke with via video call, reassured her that that things were stable, hopeful for full recovery LFTs reviewed Continue current support RAE BO MD Aug 08, 2021 08:31
[2021-08-08] MEDS: ONDANSETRON PF 4 MG/2 ML VIAL. IVP PRN (09:23)
[2021-08-08 10:05] LABS: BASO % 0 % (0-3); EOS # 0.2 x10^3/uL (0.0-0.7); EOS % 1 % (0-3); HEMATOCRIT 40.8 % (39.0-53.0); HEMOGLOBIN 13.4 g/dL (13.0-17.5); LYMPH # 0.8 x10^3/uL (1.0-4.8); LYMPH % 6 % (24-48); MEAN CORPUSCULAR HEMOGLOBIN 30 pg (25-35); MEAN CORPUSCULAR HGB CONC 33 g/dL (31-37); MEAN CORPUSCULAR VOLUME 92 fL (79-100); MONO # 0.7 x10^3/uL (0.0-1.1); MONO % 5 % (0-9); NEUT % 88 % (31-73); PLATELET COUNT 496 x10^3/uL (140-400); RED BLOOD COUNT 4.45 x10^6/uL (4.30-5.70); RED CELL DISTRIBUTION WIDTH 13.3 % (11.5-14.5); WHITE BLOOD COUNT 13.7 x10^3/uL (4.0-11.0)
[2021-08-08 10:23] LABS: ALBUMIN 1.9 g/dL (3.4-5.0); ALBUMIN/GLOBULIN RATIO 0.5 (1.0-1.7); CALCIUM 8.5 mg/dL (8.5-10.1); CREATININE 0.8 mg/dL (0.7-1.3); GFR 108.8; POTASSIUM 3.9 mmol/L (3.5-5.1); TOTAL BILIRUBIN 0.7 mg/dL (0.2-1.0); TOTAL PROTEIN 5.8 g/dL (6.4-8.2)
[2021-08-08 10:37] VITALS: BP 111/66
[2021-08-08] MEDS: ASCORBIC ACID 500 MG TABLET PO SCH (12:22)
[2021-08-08] MEDS: ZINC SULFATE 220 MG CAPSULE. PO SCH (12:22)
--- NOTE | 2021-08-08 13:27 | PDOC ---
[employer] [facility] PROGRESS NOTE Date of Service DOS: DATE: 08/08/21 TIME: 13:25 Chief Complaint Chief Complaint Acute respiratory failure with hypoxia due to COVID-19 virus (unvaccinated) Pneumonia due to COVID-19 virus History of Present Illness History of Present Illness 08/08, up to chair, feels better, eating 100% of meals, serum albumin still very low, 1.9 cont current wean 02 as able 08/07 feels much better today able to wean 02 down some, off ventimask, on 10 liters able to eat some his anxiety is much better today 08/06/2021 Patient seen and examined He is still on 100% nonrebreather and O2 per nasal cannula as well markedly anxious Chart reviewed Discussed with SUNDAR Jimenez with mattress spring encaser He completed 4 days of remdesivir and we stopped it yesterday due to slightly elevated liver function test Still appears very ill COVID Vitals/I&O Vitals/I&O: Vital Signs Date Time Temp Pulse Resp B/P (MAP) Pulse Ox O2 Delivery O2 Flow Rate FiO2 08/08/21 10:37 97.8 83 20 111/66 (81) 96 NonRebreather Mask 15.0 97.8 I & O 08/07/21 08/07/21 08/08/21 15:00 23:00 07:00 Intake Total 360 ml 330 ml 1300 ml Output Total 600 ml 1300 ml 2225 ml Balance -240 ml -970 ml -925 ml Physical Exam General: Alert, Oriented X3, moderate distress, Other (Very anxious) Heart: No murmurs, Other (Tachycardic) Lungs: Other (no accessory muscle use) Abdomen: Normal bowel sounds Extremities: No cyanosis Skin: No rashes Labs Labs: Laboratory Tests Test 08/08/21 09:45 White Blood Count 13.7 x10^3/uL (4.0-11.0) Red Blood Count 4.45 x10^6/uL (4.30-5.70) Hemoglobin 13.4 g/dL (13.0-17.5) Hematocrit 40.8 % (39.0-53.0) Mean Corpuscular Volume 92 fL (79-100) Mean Corpuscular Hemoglobin 30 pg (25-35) Mean Corpuscular Hemoglobin Concent 33 g/dL (31-37) Red Cell Distribution Width 13.3 % (11.5-14.5) Platelet Count 496 x10^3/uL (140-400) Neutrophils (%) (Auto) 88 % (31-73) Lymphocytes (%) (Auto) 6 % (24-48) Monocytes (%) (Auto) 5 % (0-9) Eosinophils (%) (Auto) 1 % (0-3) Basophils (%) (Auto) 0 % (0-3) Neutrophils # (Auto) 12.0 x10^3/uL (1.8-7.7) Lymphocytes # (Auto) 0.8 x10^3/uL (1.0-4.8) Monocytes # (Auto) 0.7 x10^3/uL (0.0-1.1) Eosinophils # (Auto) 0.2 x10^3/uL (0.0-0.7) Basophils # (Auto) 0.0 x10^3/uL (0.0-0.2) Sodium Level 133 mmol/L (136-145) Potassium Level 3.9 mmol/L (3.5-5.1) Chloride Level 96 mmol/L (98-107) Carbon Dioxide Level 32 mmol/L (21-32) Anion Gap 5 (6-14) Blood Urea Nitrogen 13 mg/dL (8-26) Creatinine 0.8 mg/dL (0.7-1.3) Estimated GFR (Cockcroft-Gault) 108.8 BUN/Creatinine Ratio 16 (6-20) Glucose Level 164 mg/dL (70-99) Calcium Level 8.5 mg/dL (8.5-10.1) Total Bilirubin 0.7 mg/dL (0.2-1.0) Aspartate Amino Transf (AST/SGOT) 50 U/L (15-37) Alanine Aminotransferase (ALT/SGPT) 144 U/L (16-63) Alkaline Phosphatase 126 U/L (46-116) Total Protein 5.8 g/dL (6.4-8.2) Albumin 1.9 g/dL (3.4-5.0) Albumin/Globulin Ratio 0.5 (1.0-1.7) Assessment and Plan Assessmemt and Plan Problems Medical Problems: (1) Acute respiratory failure with hypoxia Status: Acute (2) Pneumonia due to COVID-19 virus Status: Acute Comment Review of Relevant I have reviewed the following items iam (where applicable) has been applied. Medications: Current Medications Medications (Trade) Dose Ordered Sig/Willy Route PRN Reason Start Time Stop Time Status Last Admin Dose Admin Ascorbic Acid (Vitamin C) 500 mg DAILY PO 08/08/21 12:15 08/08/21 12:22 Zinc Sulfate (Orazinc) 220 mg DAILY PO 08/08/21 12:15 08/08/21 12:22 Justifications for Admission Other Justification CARMEN GRANT MD Aug 08, 2021 13:27
[2021-08-08 14:28] VITALS: BP 112/62
[2021-08-08 19:21] VITALS: BP 109/61
[2021-08-08] MEDS: cefTRIAXone IV Push 1 GM VIAL. IVP SCH (20:53)
[2021-08-08] MEDS: ZOLPIDEM 5 MG TABLET. PO PRN ×2 (20:54→22:57)
[2021-08-08] MEDS: ENOXAPARIN 40 MG/0.4 ML SYRINGE. SQ SCH (20:54)
[2021-08-08] MEDS: oxyCODONE/APAP 5/325 1 TAB TABLET PO PRN (20:55)
[2021-08-08 22:34] VITALS: BP 116/59
[2021-08-09 02:40] VITALS: BP 136/73
[2021-08-09] MEDS: IV RINGERS,LACTATED 1000ML 1,000 ML IV SCH (04:19)
[2021-08-09 06:39] LABS: BASO % 0 % (0-3); EOS # 0.1 x10^3/uL (0.0-0.7); EOS % 1 % (0-3); HEMATOCRIT 40.6 % (39.0-53.0); HEMOGLOBIN 13.5 g/dL (13.0-17.5); LYMPH # 1.5 x10^3/uL (1.0-4.8); LYMPH % 11 % (24-48); MEAN CORPUSCULAR HEMOGLOBIN 30 pg (25-35); MEAN CORPUSCULAR HGB CONC 33 g/dL (31-37); MEAN CORPUSCULAR VOLUME 91 fL (79-100); MONO # 0.9 x10^3/uL (0.0-1.1); MONO % 7 % (0-9); NEUT # 11.8 x10^3/uL (1.8-7.7); NEUT % 82 % (31-73); PLATELET COUNT 498 x10^3/uL (140-400); RED BLOOD COUNT 4.48 x10^6/uL (4.30-5.70); RED CELL DISTRIBUTION WIDTH 12.9 % (11.5-14.5); WHITE BLOOD COUNT 14.5 x10^3/uL (4.0-11.0)
[2021-08-09 07:00] VITALS: BP 115/73
[2021-08-09 07:14] LABS: ALBUMIN/GLOBULIN RATIO 0.5 (1.0-1.7); CALCIUM 8.7 mg/dL (8.5-10.1); CREATININE 0.7 mg/dL (0.7-1.3); GFR 126.9; POTASSIUM 4.3 mmol/L (3.5-5.1); TOTAL BILIRUBIN 0.7 mg/dL (0.2-1.0); TOTAL PROTEIN 6.1 g/dL (6.4-8.2)
[2021-08-09] MEDS: LACTOBACILLUS RHAMNOSUS GG 1 CAPSULE. PO SCH ×2 (08:01→22:46)
[2021-08-09] MEDS: SENNOSIDES/DOCUSATE 8.6/50MG TABLET. PO SCH ×2 (08:01→22:46)
[2021-08-09] MEDS: ZINC SULFATE 220 MG CAPSULE. PO SCH (08:01)
[2021-08-09] MEDS: MULTIVITAMIN with MINERAL TABLET. PO SCH (08:01)
[2021-08-09] MEDS: ASPIRIN ENTERIC COATED 81 MG TABLET.DR. PO SCH (08:01)
[2021-08-09] MEDS: ASCORBIC ACID 500 MG TABLET PO SCH (08:01)
[2021-08-09] MEDS: DEXAMETHASONE SOD PHOS 4 MG/ML VIAL IVP SCH (08:02)
[2021-08-09] MEDS: DOXYCYCLINE HYCLATE 100 MG in IV DEXTROSE 5% 100ML 100 ML IV SCH (08:04)
--- NOTE | 2021-08-09 08:41 | PDOC ---
PULMONARY PROGRESS NOTES DATE: 08/09/21 TIME: 08:39 Subjective Patient feels better today, in better mood sob cough better on nrb mask only Vitals Vital Signs Date Time Temp Pulse Resp B/P (MAP) Pulse Ox O2 Delivery O2 Flow Rate FiO2 08/09/21 02:40 97.9 55 18 136/73 (94) 100 NonRebreather Mask 15.0 97.9 ROS: No Nausea, No Chest Pain, No Abdominal Pain, No Increase Cough General: Alert Lungs: Other (no accessory muscle use) Cardiovascular: S1, S2 Abdomen: Other (obese) Neuro Exam: Alert Extremities: No Edema Skin: No Rashes Labs Laboratory Tests Test 08/07/21 08:55 08/08/21 09:45 08/09/21 05:30 White Blood Count 14.4 x10^3/uL (4.0-11.0) 13.7 x10^3/uL (4.0-11.0) 14.5 x10^3/uL (4.0-11.0) Red Blood Count 4.41 x10^6/uL (4.30-5.70) 4.45 x10^6/uL (4.30-5.70) 4.48 x10^6/uL (4.30-5.70) Hemoglobin 13.3 g/dL (13.0-17.5) 13.4 g/dL (13.0-17.5) 13.5 g/dL (13.0-17.5) Hematocrit 40.3 % (39.0-53.0) 40.8 % (39.0-53.0) 40.6 % (39.0-53.0) Mean Corpuscular Volume 91 fL (79-100) 92 fL (79-100) 91 fL (79-100) Mean Corpuscular Hemoglobin 30 pg (25-35) 30 pg (25-35) 30 pg (25-35) Mean Corpuscular Hemoglobin Concent 33 g/dL (31-37) 33 g/dL (31-37) 33 g/dL (31-37) Red Cell Distribution Width 13.0 % (11.5-14.5) 13.3 % (11.5-14.5) 12.9 % (11.5-14.5) Platelet Count 490 x10^3/uL (140-400) 496 x10^3/uL (140-400) 498 x10^3/uL (140-400) Neutrophils (%) (Auto) 85 % (31-73) 88 % (31-73) 82 % (31-73) Lymphocytes (%) (Auto) 7 % (24-48) 6 % (24-48) 11 % (24-48) Monocytes (%) (Auto) 7 % (0-9) 5 % (0-9) 7 % (0-9) Eosinophils (%) (Auto) 2 % (0-3) 1 % (0-3) 1 % (0-3) Basophils (%) (Auto) 0 % (0-3) 0 % (0-3) 0 % (0-3) Neutrophils # (Auto) 12.2 x10^3/uL (1.8-7.7) 12.0 x10^3/uL (1.8-7.7) 11.8 x10^3/uL (1.8-7.7) Lymphocytes # (Auto) 1.0 x10^3/uL (1.0-4.8) 0.8 x10^3/uL (1.0-4.8) 1.5 x10^3/uL (1.0-4.8) Monocytes # (Auto) 1.0 x10^3/uL (0.0-1.1) 0.7 x10^3/uL (0.0-1.1) 0.9 x10^3/uL (0.0-1.1) Eosinophils # (Auto) 0.2 x10^3/uL (0.0-0.7) 0.2 x10^3/uL (0.0-0.7) 0.1 x10^3/uL (0.0-0.7) Basophils # (Auto) 0.0 x10^3/uL (0.0-0.2) 0.0 x10^3/uL (0.0-0.2) 0.0 x10^3/uL (0.0-0.2) Sodium Level 134 mmol/L (136-145) 133 mmol/L (136-145) 136 mmol/L (136-145) Potassium Level 4.2 mmol/L (3.5-5.1) 3.9 mmol/L (3.5-5.1) 4.3 mmol/L (3.5-5.1) Chloride Level 95 mmol/L (98-107) 96 mmol/L (98-107) 99 mmol/L (98-107) Carbon Dioxide Level 31 mmol/L (21-32) 32 mmol/L (21-32) 33 mmol/L (21-32) Anion Gap 8 (6-14) 5 (6-14) 4 (6-14) Blood Urea Nitrogen 14 mg/dL (8-26) 13 mg/dL (8-26) 13 mg/dL (8-26) Creatinine 0.7 mg/dL (0.7-1.3) 0.8 mg/dL (0.7-1.3) 0.7 mg/dL (0.7-1.3) Estimated GFR (Cockcroft-Gault) 126.9 108.8 126.9 BUN/Creatinine Ratio 20 (6-20) 16 (6-20) 19 (6-20) Glucose Level 86 mg/dL (70-99) 164 mg/dL (70-99) 76 mg/dL (70-99) Calcium Level 8.7 mg/dL (8.5-10.1) 8.5 mg/dL (8.5-10.1) 8.7 mg/dL (8.5-10.1) Total Bilirubin 0.8 mg/dL (0.2-1.0) 0.7 mg/dL (0.2-1.0) 0.7 mg/dL (0.2-1.0) Aspartate Amino Transf (AST/SGOT) 37 U/L (15-37) 50 U/L (15-37) 55 U/L (15-37) Alanine Aminotransferase (ALT/SGPT) 106 U/L (16-63) 144 U/L (16-63) 199 U/L (16-63) Alkaline Phosphatase 117 U/L (46-116) 126 U/L (46-116) 130 U/L (46-116) Total Protein 5.9 g/dL (6.4-8.2) 5.8 g/dL (6.4-8.2) 6.1 g/dL (6.4-8.2) Albumin 2.0 g/dL (3.4-5.0) 1.9 g/dL (3.4-5.0) 2.0 g/dL (3.4-5.0) Albumin/Globulin Ratio 0.5 (1.0-1.7) 0.5 (1.0-1.7) 0.5 (1.0-1.7) Laboratory Tests Test 08/08/21 09:45 08/09/21 05:30 White Blood Count 13.7 x10^3/uL (4.0-11.0) 14.5 x10^3/uL (4.0-11.0) Red Blood Count 4.45 x10^6/uL (4.30-5.70) 4.48 x10^6/uL (4.30-5.70) Hemoglobin 13.4 g/dL (13.0-17.5) 13.5 g/dL (13.0-17.5) Hematocrit 40.8 % (39.0-53.0) 40.6 % (39.0-53.0) Mean Corpuscular Volume 92 fL (79-100) 91 fL (79-100) Mean Corpuscular Hemoglobin 30 pg (25-35) 30 pg (25-35) Mean Corpuscular Hemoglobin Concent 33 g/dL (31-37) 33 g/dL (31-37) Red Cell Distribution Width 13.3 % (11.5-14.5) 12.9 % (11.5-14.5) Platelet Count 496 x10^3/uL (140-400) 498 x10^3/uL (140-400) Neutrophils (%) (Auto) 88 % (31-73) 82 % (31-73) Lymphocytes (%) (Auto) 6 % (24-48) 11 % (24-48) Monocytes (%) (Auto) 5 % (0-9) 7 % (0-9) Eosinophils (%) (Auto) 1 % (0-3) 1 % (0-3) Basophils (%) (Auto) 0 % (0-3) 0 % (0-3) Neutrophils # (Auto) 12.0 x10^3/uL (1.8-7.7) 11.8 x10^3/uL (1.8-7.7) Lymphocytes # (Auto) 0.8 x10^3/uL (1.0-4.8) 1.5 x10^3/uL (1.0-4.8) Monocytes # (Auto) 0.7 x10^3/uL (0.0-1.1) 0.9 x10^3/uL (0.0-1.1) Eosinophils # (Auto) 0.2 x10^3/uL (0.0-0.7) 0.1 x10^3/uL (0.0-0.7) Basophils # (Auto) 0.0 x10^3/uL (0.0-0.2) 0.0 x10^3/uL (0.0-0.2) Sodium Level 133 mmol/L (136-145) 136 mmol/L (136-145) Potassium Level 3.9 mmol/L (3.5-5.1) 4.3 mmol/L (3.5-5.1) Chloride Level 96 mmol/L (98-107) 99 mmol/L (98-107) Carbon Dioxide Level 32 mmol/L (21-32) 33 mmol/L (21-32) Anion Gap 5 (6-14) 4 (6-14) Blood Urea Nitrogen 13 mg/dL (8-26) 13 mg/dL (8-26) Creatinine 0.8 mg/dL (0.7-1.3) 0.7 mg/dL (0.7-1.3) Estimated GFR (Cockcroft-Gault) 108.8 126.9 BUN/Creatinine Ratio 16 (6-20) 19 (6-20) Glucose Level 164 mg/dL (70-99) 76 mg/dL (70-99) Calcium Level 8.5 mg/dL (8.5-10.1) 8.7 mg/dL (8.5-10.1) Total Bilirubin 0.7 mg/dL (0.2-1.0) 0.7 mg/dL (0.2-1.0) Aspartate Amino Transf (AST/SGOT) 50 U/L (15-37) 55 U/L (15-37) Alanine Aminotransferase (ALT/SGPT) 144 U/L (16-63) 199 U/L (16-63) Alkaline Phosphatase 126 U/L (46-116) 130 U/L (46-116) Total Protein 5.8 g/dL (6.4-8.2) 6.1 g/dL (6.4-8.2) Albumin 1.9 g/dL (3.4-5.0) 2.0 g/dL (3.4-5.0) Albumin/Globulin Ratio 0.5 (1.0-1.7) 0.5 (1.0-1.7) Impression . IMPRESSION: 1. Acute hypoxemic respiratory failure/ARDS. 2. COVID-19 viral pneumonia. 3. Acute respiratory distress syndrome. 4. Possible bacterial pneumonia. 5. Elevated liver function tests related to COVID. Plan . Updated 08/09 titrate fio2 to keep sat 90% oxygenation improving start IS when on NC self proning as tolerated steroid abx day 9 will stop Discussed with RN pt Updated 08/08 titrate fio2 to keep sat 90% self proning as tolerated steroid abx Discussed with RN pt Updated 08/07 Discussed with RN Continue titrating FiO2 down On exam less rhonchi better airflow updated 08/06 I reassured patient that he will improve with time I referred him to a rosario on smart phone for meditation Continue current support updated 08/05 Reassured patient that he should get better with time Continue current support LFTs trending down Urine Legionella antigen, strep antigen, negative Continue steroid Continue empiric antibiotics updated 08/04 I spoke with via video call, reassured her that that things were stable, hopeful for full recovery LFTs reviewed Continue current support RAE BO MD Aug 09, 2021 08:41
[2021-08-09] MEDS ORDERED: SODIUM CHLORIDE 0.65% NASAL SPRAY 45ML BOTTLE. NS PRN (09:45)
[2021-08-09] MEDS ORDERED: OXYMETAZOLINE 0.05% NASAL SPRAY 30ML BOTTLE. NS ONE (09:45)
[2021-08-09 11:00] VITALS: BP 107/59
--- NOTE | 2021-08-09 13:09 | PDOC ---
[facility] PROGRESS NOTE Date of Service DOS: DATE: 08/09/21 TIME: 13:06 Chief Complaint Chief Complaint Acute respiratory failure with hypoxia due to COVID-19 virus (unvaccinated) Pneumonia due to COVID-19 virus ARDS severe malnutrition sepsis and sepsis syndrome POA History of Present Illness History of Present Illness 08/09, up to chair, feels better, eating 100% of meals, serum albumin still very low, 1.9 hsi could visit today, brought him [place], his mood is much better, still on 10 liters NC cont current wean 02 as able Discussed with RN He completed 4 days of remdesivir and we stopped it yesterday due to slightly elevated liver function test Vitals/I&O Vitals/I&O: Vital Signs Date Time Temp Pulse Resp B/P (MAP) Pulse Ox O2 Delivery O2 Flow Rate FiO2 08/09/21 11:00 96.3 89 20 107/59 (75) 95 Nasal Cannula 8.0 96.3 I & O 08/08/21 08/08/21 08/09/21 15:00 23:00 07:00 Intake Total 300 ml 700 ml 1100 ml Output Total 450 ml 1100 ml 675 ml Balance -150 ml -400 ml 425 ml Physical Exam General: Alert, Oriented X3, No acute distress, mild distress, Other (Very anxious) Heart: No murmurs, Other (Tachycardic) Lungs: Other (no accessory muscle use) Abdomen: Normal bowel sounds Extremities: No cyanosis Skin: No rashes Labs Labs: Laboratory Tests Test 08/09/21 05:30 White Blood Count 14.5 x10^3/uL (4.0-11.0) Red Blood Count 4.48 x10^6/uL (4.30-5.70) Hemoglobin 13.5 g/dL (13.0-17.5) Hematocrit 40.6 % (39.0-53.0) Mean Corpuscular Volume 91 fL (79-100) Mean Corpuscular Hemoglobin 30 pg (25-35) Mean Corpuscular Hemoglobin Concent 33 g/dL (31-37) Red Cell Distribution Width 12.9 % (11.5-14.5) Platelet Count 498 x10^3/uL (140-400) Neutrophils (%) (Auto) 82 % (31-73) Lymphocytes (%) (Auto) 11 % (24-48) Monocytes (%) (Auto) 7 % (0-9) Eosinophils (%) (Auto) 1 % (0-3) Basophils (%) (Auto) 0 % (0-3) Neutrophils # (Auto) 11.8 x10^3/uL (1.8-7.7) Lymphocytes # (Auto) 1.5 x10^3/uL (1.0-4.8) Monocytes # (Auto) 0.9 x10^3/uL (0.0-1.1) Eosinophils # (Auto) 0.1 x10^3/uL (0.0-0.7) Basophils # (Auto) 0.0 x10^3/uL (0.0-0.2) Sodium Level 136 mmol/L (136-145) Potassium Level 4.3 mmol/L (3.5-5.1) Chloride Level 99 mmol/L (98-107) Carbon Dioxide Level 33 mmol/L (21-32) Anion Gap 4 (6-14) Blood Urea Nitrogen 13 mg/dL (8-26) Creatinine 0.7 mg/dL (0.7-1.3) Estimated GFR (Cockcroft-Gault) 126.9 BUN/Creatinine Ratio 19 (6-20) Glucose Level 76 mg/dL (70-99) Calcium Level 8.7 mg/dL (8.5-10.1) Total Bilirubin 0.7 mg/dL (0.2-1.0) Aspartate Amino Transf (AST/SGOT) 55 U/L (15-37) Alanine Aminotransferase (ALT/SGPT) 199 U/L (16-63) Alkaline Phosphatase 130 U/L (46-116) Total Protein 6.1 g/dL (6.4-8.2) Albumin 2.0 g/dL (3.4-5.0) Albumin/Globulin Ratio 0.5 (1.0-1.7) Assessment and Plan Assessmemt and Plan Problems Medical Problems: (1) Acute respiratory failure with hypoxia Status: Acute (2) Pneumonia due to COVID-19 virus Status: Acute Comment Review of Relevant I have reviewed the following items iam (where applicable) has been applied. Medications: Current Medications Medications (Trade) Dose Ordered Sig/Willy Route PRN Reason Start Time Stop Time Status Last Admin Dose Admin Oxymetazoline HCl (Afrin) 2 spray 1X ONCE NS 08/09/21 09:45 08/09/21 09:46 DC 08/09/21 09:45 Justifications for Admission Other Justification CARMEN GRANT MD Aug 09, 2021 13:09
[2021-08-09 15:00] VITALS: BP 105/67
[2021-08-09 19:00] VITALS: BP 121/75
[2021-08-09] MEDS: ENOXAPARIN 40 MG/0.4 ML SYRINGE. SQ SCH ×2 (20:00→22:48)
[2021-08-09] MEDS: OXYMETAZOLINE 0.05% NASAL SPRAY 30ML BOTTLE. NS SCH (21:00)
[2021-08-09] MEDS: ZOLPIDEM 5 MG TABLET. PO PRN (22:46)
[2021-08-09] MEDS: oxyCODONE/APAP 5/325 1 TAB TABLET PO PRN (22:47)
[2021-08-09 23:00] VITALS: BP 144/86
[2021-08-10 03:00] VITALS: BP 127/81
[2021-08-10 07:00] VITALS: BP 102/78
[2021-08-10] MEDS: OXYMETAZOLINE 0.05% NASAL SPRAY 30ML BOTTLE. NS SCH (09:00)
[2021-08-10] MEDS: SENNOSIDES/DOCUSATE 8.6/50MG TABLET. PO SCH ×2 (09:00→09:39)
--- NOTE | 2021-08-10 09:03 | PDOC ---
PULMONARY PROGRESS NOTES DATE: 08/10/21 TIME: 09:02 Subjective Patient feels better today, in better mood sob cough better on nrb mask only Vitals Vital Signs Date Time Temp Pulse Resp B/P (MAP) Pulse Ox O2 Delivery O2 Flow Rate FiO2 08/10/21 03:00 97.5 79 16 127/81 (96) 96 Nasal Cannula 5.0 97.5 ROS: No Nausea, No Chest Pain, No Abdominal Pain, No Increase Cough General: Alert Lungs: Other (no accessory muscle use) Cardiovascular: S1, S2 Abdomen: Other (obese) Neuro Exam: Alert Extremities: No Edema Skin: No Rashes Labs Laboratory Tests Test 08/08/21 09:45 08/09/21 05:30 White Blood Count 13.7 x10^3/uL (4.0-11.0) 14.5 x10^3/uL (4.0-11.0) Red Blood Count 4.45 x10^6/uL (4.30-5.70) 4.48 x10^6/uL (4.30-5.70) Hemoglobin 13.4 g/dL (13.0-17.5) 13.5 g/dL (13.0-17.5) Hematocrit 40.8 % (39.0-53.0) 40.6 % (39.0-53.0) Mean Corpuscular Volume 92 fL (79-100) 91 fL (79-100) Mean Corpuscular Hemoglobin 30 pg (25-35) 30 pg (25-35) Mean Corpuscular Hemoglobin Concent 33 g/dL (31-37) 33 g/dL (31-37) Red Cell Distribution Width 13.3 % (11.5-14.5) 12.9 % (11.5-14.5) Platelet Count 496 x10^3/uL (140-400) 498 x10^3/uL (140-400) Neutrophils (%) (Auto) 88 % (31-73) 82 % (31-73) Lymphocytes (%) (Auto) 6 % (24-48) 11 % (24-48) Monocytes (%) (Auto) 5 % (0-9) 7 % (0-9) Eosinophils (%) (Auto) 1 % (0-3) 1 % (0-3) Basophils (%) (Auto) 0 % (0-3) 0 % (0-3) Neutrophils # (Auto) 12.0 x10^3/uL (1.8-7.7) 11.8 x10^3/uL (1.8-7.7) Lymphocytes # (Auto) 0.8 x10^3/uL (1.0-4.8) 1.5 x10^3/uL (1.0-4.8) Monocytes # (Auto) 0.7 x10^3/uL (0.0-1.1) 0.9 x10^3/uL (0.0-1.1) Eosinophils # (Auto) 0.2 x10^3/uL (0.0-0.7) 0.1 x10^3/uL (0.0-0.7) Basophils # (Auto) 0.0 x10^3/uL (0.0-0.2) 0.0 x10^3/uL (0.0-0.2) Sodium Level 133 mmol/L (136-145) 136 mmol/L (136-145) Potassium Level 3.9 mmol/L (3.5-5.1) 4.3 mmol/L (3.5-5.1) Chloride Level 96 mmol/L (98-107) 99 mmol/L (98-107) Carbon Dioxide Level 32 mmol/L (21-32) 33 mmol/L (21-32) Anion Gap 5 (6-14) 4 (6-14) Blood Urea Nitrogen 13 mg/dL (8-26) 13 mg/dL (8-26) Creatinine 0.8 mg/dL (0.7-1.3) 0.7 mg/dL (0.7-1.3) Estimated GFR (Cockcroft-Gault) 108.8 126.9 BUN/Creatinine Ratio 16 (6-20) 19 (6-20) Glucose Level 164 mg/dL (70-99) 76 mg/dL (70-99) Calcium Level 8.5 mg/dL (8.5-10.1) 8.7 mg/dL (8.5-10.1) Total Bilirubin 0.7 mg/dL (0.2-1.0) 0.7 mg/dL (0.2-1.0) Aspartate Amino Transf (AST/SGOT) 50 U/L (15-37) 55 U/L (15-37) Alanine Aminotransferase (ALT/SGPT) 144 U/L (16-63) 199 U/L (16-63) Alkaline Phosphatase 126 U/L (46-116) 130 U/L (46-116) Total Protein 5.8 g/dL (6.4-8.2) 6.1 g/dL (6.4-8.2) Albumin 1.9 g/dL (3.4-5.0) 2.0 g/dL (3.4-5.0) Albumin/Globulin Ratio 0.5 (1.0-1.7) 0.5 (1.0-1.7) Impression . IMPRESSION: 1. Acute hypoxemic respiratory failure/ARDS. 2. COVID-19 viral pneumonia. 3. Acute respiratory distress syndrome. 4. Possible bacterial pneumonia. 5. Elevated liver function tests related to COVID. Plan . Updated 08/10 Saw patient walking in the hallway, not very short of breath Needs 4 L of oxygen at rest, 8 with exertion. Rx written Follow-up with me in the office in Septemberupdated 08/09 titrate fio2 to keep sat 90% oxygenation improving start IS when on NC self proning as tolerated steroid abx day 9 will stop Discussed with RN pt Updated 08/08 titrate fio2 to keep sat 90% self proning as tolerated steroid abx Discussed with RN pt JORDEN PERDUE MD Aug 10, 2021 09:02
[2021-08-10] MEDS: LACTOBACILLUS RHAMNOSUS GG 1 CAPSULE. PO SCH (09:38)
[2021-08-10] MEDS: ASPIRIN ENTERIC COATED 81 MG TABLET.DR. PO SCH (09:39)
[2021-08-10] MEDS: ASCORBIC ACID 500 MG TABLET PO SCH (09:39)
[2021-08-10] MEDS: ZINC SULFATE 220 MG CAPSULE. PO SCH (09:39)
[2021-08-10] MEDS: MULTIVITAMIN with MINERAL TABLET. PO SCH (09:39)
[2021-08-10] MEDS: DEXAMETHASONE SOD PHOS 4 MG/ML VIAL IVP SCH (09:39)
[2021-08-10 11:00] VITALS: BP 123/81
[2021-08-10] MEDS ORDERED: PRED20TA PO (12:46)
--- NOTE | 2021-08-10 12:47 | DISCH ---
DISCHARGE INSTRUCTIONS Condition on Discharge Condition on Discharge: Stable Activity After Discharge Activity Instructions for Disc: Avoid exertion Lifting Instructions after Dis: Do not lift >10 pounds Exercise Instruction after Dis: Walk 15 min, 3 x per day Driving Instructions after Dis: Do not drive today Diet after Discharge Diet after Discharge: Cardiac Follow-Up Follow up with: PCP within 2 weeks of discharge Follow Up With: Pulmonology as needed THEA GRULLON MD Aug 10, 2021 12:47
--- NOTE | 2021-08-10 14:27 | NUR ---
SS following up with discharge planning. SS reviewed pt chart and discussed with pt RN. Pt is currently requiring oxygen at four liters nasal canula. COVID19 positive. Six minute walk completed and pt requiring four liters at rest and eight liters with exertion. Script received for oxygen and phoned and faxed to [facility], ; fax [phone]. Pt is self pay. Self pay cost for oxygen is $120. SS met with pt and pt is agreeable to pay privately for oxygen. SS discussed with Mily at [facility]. Oxygen tank provided to pt for home. Discharge order on the chart. Pt's RN notified.
[2021-08-10 15:00] VITALS: BP 121/81
--- NOTE | 2021-08-10 15:40 | NUR ---
DISCHARGED PATIENT TO HOME. DISCHARGE INSTRUCTIONS GIVEN. PIV AND HEART MONITOR REMOVED. ESCORTED PATIENT OFF UNIT PER WHEELCHAIR INTO A PRIVATE VEHICLE.
--- NOTE | 2021-08-20 10:24 | PDOC3 ---
[facility]-Discharge Summary Date of Admission: Date of Admission: Jul 31, 2021 Date of Discharge: Date of Discharge: Aug 10, 2021 Discharge Diagnosis: Discharge Diagnosis: Acute respiratory failure with hypoxia due to COVID-19 virus (unvaccinated) Pneumonia due to COVID-19 virus ARDS severe malnutrition sepsis and sepsis syndrome POA Hospital Course: Hospital Course: 35-year-old white male who presented to the emergency room today due to ongoing shortness of breath. Patient denies any sort of past medical history or daily medications. Reports that he was on vacation in [place] and had been having some nausea vomiting fever chills and cough. Was seen in emergency room there twice and was actually diagnosed on 07/19 with Covid. Says that he was not provided any medication outpatient on either of these visits. Says that ever since the diagnosis on the he has had ongoing GI upset nausea vomiting. Also reports that his shortness of breath notably worsened today. CT performed in emergency room negative for PE but more so consistent with a pneumonia. 08/09, up to chair, feels better, eating 100% of meals, serum albumin still very low, 1.9 hsi could visit today, brought him [employer], his mood is much better, still on 10 liters NC cont current wean 02 as able Discussed with RN He completed 4 days of remdesivir and we stopped it yesterday due to slightly elevated liver function test By day of discharge, pt was clinically stable and ready for discharge. Rest of hospital course was uneventful Disposition: Disposition/Orders: D/C to Home Activity: Activity: Resume previous activity Diet: Diet: Cardiac Medications: Home Meds Active Scripts Prednisone (PREDNISONE) 20 Mg Tablet, 1 TAB PO DAILY for covid pneumonia for 2 Days, #2 TAB Prov:THEA GRULLON MD 08/10/21 Scheduled Prednisone (Prednisone), 1 TAB PO DAILY Total Time: Total Time: Total time spent was 32 minutes in preparing scripts, discharge planning with SW and RN, and preparing this discharge summary. Justicifation of Admission Dx: Justifications for Admission: Justification of Admission Dx: Yes Respiratory Failure: Severe Resp Distress THEA GRULLON MD Aug 20, 2021 10:24
== END 2021-08-10 15:37 | disposition home or self-care (01) | DRG 871 ==
LOC: ER 17:03 → 6 SOUTH 17:55
PROVIDERS: ADMIT Student in an Organized Health Care Education/Training Program; ATTEND Student in an Organized Health Care Education/Training Program
PROC: XW033E5 Introduction of Remdesivir Anti-infective into Peripheral Vein, Percutaneous Approach, New Technology Group 5 (ICD-10-PCS; principal; 2021-08-01)
DX: A41.89 Other specified sepsis (principal); E43 Unspecified severe protein-calorie malnutrition; J12.82 Pneumonia due to coronavirus disease 2019; J80 Acute respiratory distress syndrome; U07.1 COVID-19; F41.9 Anxiety disorder, unspecified; Z82.49 Family history of ischemic heart disease and other diseases of the circulatory system; Z68.26 Body mass index [BMI] 26.0-26.9, adult
CPT/HCPCS: 36415; 71045; 71275; 80053; 83880; 84484; 85007; 85025; 87449; 93005; 94618; J0696; J1100; J1650; J2405; J2543; J3490; J7050; J7060; J7120; Q9967; 99285-25; G0378; J7030